=== PATIENT | male | born 1940 | race Caucasian/White ===

== ENCOUNTER 2019-07-11 21:49 | Inpatient (IN) | payer MEDICARE, SELFPAY ==
[2019-07-11 22:29] VITALS: BMI 23.3
[2019-07-11 22:35] VITALS: BP 156/74; PULSE 84; RESP 21; TEMP 37.1; O2SAT 99
--- NOTE | 2019-07-11 23:10 | ED.LOWEXIN ---
HPI - Extremity Injury (Lower) General Chief Complaint: Extremity Injury, Lower Stated Complaint: states needs rt knee drained Time Seen by Provider: 07/11/19 23:10 Source: patient Mode of arrival: Ambulatory Limitations: no limitations History of Present Illness HPI Narrative: The patient developed right leg pain and swelling about 1 week ago. He was seen by his PCM, and referred for an ultrasound to rule out DVT. The patient notes edema was seen in the leg, but no evidence of DVT. Pain and swelling persisted throughout the week. The pain is swelling starts at the right foot/ankle code in a goes to the right thigh. He is specially tender and the right knee. He was then seen at an ER 2 nights ago. He describes his right knee been aspirated. The 1st syringe was yellow, there was eventually blood noted in the syringe. Purulence was not noted. He was discharged home. He has had ongoing pain and now redness in the leg. He denies associated fever, chills, chest pain or dyspnea. The only medication he takes is aspirin. He is status post mitral valve replacement and CABG. He has no history of diabetes. He has no history of surgery or injury to the right leg. He was contacted at home today, and infection was discovered in the aspirate of the right knee. The patient is aware of a lack of immediate orthopedic coverage at the hospital, although ortho is on staff. The patient presented here for evaluation. I spoke to the ER doctor, the patient's records were reviewed. The culture grew Staph aureus, (not MRSA). The pain and swelling of the right leg is perhaps increased a little through the course the leak. The redness is now extending up to the right groin. After the EKG was obtained, I question the patient about AFib. Apparently he did have a brief period of AFib after head his cardiac surgery. He has not had sustained AFib. Related Data Allergies Allergy/AdvReac Type Severity Reaction Status Date / Time aspirin AdvReac Verified 07/11/19 22:28 Sulfa (Sulfonamide AdvReac Verified 07/11/19 22:28 Antibiotics) Review of Systems Review of Systems ROS Unobtainable: All systems reviewed & are unremarkable except as noted in HPI and below Constitutional Constitutional: Reports as per HPI, Denies chills, Denies fever(s), Denies headache(s), Denies lethargy and Denies weakness ENT Ears, Nose, Mouth, and Throat: Denies vertigo, Denies dizziness and Denies headache(s) Cardiovascular Cardiovascular: Denies chest pain, Denies irregular heart rhythm, Denies lightheadedness, Denies palpitations, Denies dyspnea, Denies dyspnea on exertion and Denies orthopnea Respiratory Respiratory: Denies cough, Denies dyspnea, Denies dyspnea on exertion and Denies wheezing Gastrointestinal Gastrointestinal: Denies abdominal pain, Denies change in bowel habits, Denies diarrhea, Denies nausea and Denies vomiting Musculoskeletal Musculoskeletal: Denies back pain Comments: Right leg pain and swelling. Significant right knee pain, he cannot straighten his knee. Integumentary/Breasts Comments: Erythema to the right leg. Neurologic Neurologic: Denies vertigo, Denies dizziness, Denies headache(s) and Denies weakness Endocrine Endocrine: Denies palpitations Hematologic/Lymphatic Hematologic/Lymphatic: Denies easy bruising and Denies lymphadenopathy Comments: He is not anticoagulated. Allergic/Immunologic Allergic/Immunologic: Denies wheezing Patient History Medical History (Updated 07/12/19 @ 01:14 by Paul Minor MD) CAD (coronary artery disease), [place] coronary artery (Acute) Paroxysmal atrial fibrillation (Acute) Valvular heart disease (Acute) Surgical History History of mitral valve repair (Acute) Hx of CABG (Acute) Social History Smoking Status: Former smoker Smoking Status: Former smoker Alcohol type: beer Substance Use Type: does not use Exam Initial Vital Signs Initial Vital Signs: Vital Signs Temperature 98.8 F 07/11/19 22:35 Pulse Rate 84 07/11/19 22:35 Respiratory Rate 21 07/11/19 22:35 Blood Pressure 156/74 H 07/11/19 22:35 Pulse Oximetry 99 07/11/19 22:35 Const General: cooperative and well developed Nutritional Appearance: well nourished HENMT Mouth: oral mucosae normal and oropharynx normal Eyes Conjunctivae: conjunctivae normal Neck Neck: No lymphadenopathy Resp Effort & Inspection: normal respiratory effort and able to speak in complete sentences Auscultation: clear to auscultation bilaterally, no rales, no rhonchi and no wheezes Cardio Rhythm: abnormal rhythm irregularly irregular Heart Sounds: no click, no gallops, no murmurs and no rubs Pulses: normal peripheral pulses GI Inspection: non-distended Palpation: soft and no hepatosplenomegaly Auscultation: normal bowel sounds Back/Spine/Pelvis Back: No erythema Skin Other: Erythema from the right going to the right foot. Neuro General: alert, oriented x3, gait normal and no focal motor deficits Speech: speech normal Motor: muscle tone normal throughout Extrem General: full ROM, no clubbing, cyanosis or edema, no pedal edema and no calf tenderness Other: The patient has erythema and edema from the right groin, to the dorsal right foot. He is particularly tender on the right knee. The right knee is swollen, erythematous. He cannot flex or extend the right knee due to severe pain. The right leg is neurovascularly intact. Course Course Course Narrative: The patient has a septic right knee. Cultures reviewed from the outside hospital. He has Staph aureus, not MRSA. Ortho, Dr. Frias was consulted. He came in to see the patient, the patient will go to the OR for a right knee washout tonight. Antibiotics were discussed, oxacillin is apparently not available. Antibiotics will be left to ortho an the anesthesiologist. Orders Ordered: ED Orders 07/11/19 23:33 XR knee RT 1to2V Stat 07/11/19 23:40 EKG-12 Lead Stat 07/11/19 23:45 Blood Culture Stat C-Reactive Protein Quant Stat Complete Blood Count AUTO DIFF Stat Comprehensive Metabolic Panel Stat Erythrocyte Sedimentation Rate Stat Prothrombin Time INR Stat Acetaminophen (Tylenol) 325 mg PO PACUNOW PRN PRN Reason: Pain, Mild (1-3) Fentanyl (Sublimaze) 0 mcg IV Q5M PRN PRN Reason: Pain, Moderate (4-6) Hydromorphone HCl (Dilaudid) 0 mg IV Q5MIN PRN PRN Reason: Pain, Mild (1-3) Lactated Ringer's (Lactated Ringers) 1,000 mls @ 42 mls/hr IV CONT SABRINA Ondansetron HCl (Zofran) 4 mg IV NOW PRN PRN Reason: Nausea And Vomiting Oxycodone/Acetaminophen (Percocet 5/325) 1 tab PO PACUNOW PRN PRN Reason: Mild or Moderate Pain Vital Signs Vital signs: Vital Signs - 8 hr 07/11/19 22:35 07/11/19 23:44 Temperature 98.8 F Pulse Rate 84 84 Respiratory Rate 21 Blood Pressure [Left Arm] 156/74 H 150/71 H Pulse Oximetry 99 100 MDM - Extremity Injury (Lower) Lab Data Result diagrams: 07/11/19 23:45 07/11/19 23:45 Labs: Lab Results 07/11/19 07/11/19 07/11/19 Range/Units 23:45 23:45 23:45 WBC 6.8 (4.5-11.0) X10^3/uL RBC 3.97 L (4.5-5.9) X10^6/uL Hgb 12.6 L (13.5-17.5) g/dL Hct 36.8 L (41-53) % MCV 92.6 (80-100) fL MCH 31.8 (26-34) PG MCHC 34.4 (30-36) % RDW 13.5 (11.6-14.8) % Plt Count 231 (150-400) X10^3/uL Neut % (Auto) 71.0 (50-75) % Lymph % (Auto) 16.9 L (25-40) % [place] % (Auto) 11.1 (3-14) % Eos % (Auto) 0.4 L (2-4) % Baso % (Auto) 0.6 (0-2) % Neut # (Auto) 4800 (8384-4202) /uL Lymph # (Auto) 1100 (3865-1815) /uL [place] # (Auto) 800 (0-900) /uL Eos # (Auto) 0 (0-450) /uL Baso # (Auto) 0 (0-100) /uL ESR 83 H (0-15) MM/HR PT 15.0 H (10.1-12.7) SECONDS INR 1.3 (0.9-1.3) Sodium 138 (137-145) mmol/L Potassium 4.7 (3.4-5.1) mmol/L Chloride 103 (98-107) mmol/L Carbon Dioxide 25 (22-32) mmol/L BUN 28 H (9-20) mg/dL Creatinine 1.00 (0.66-1.25) mg/dL Estimated GFR > 60.0 (>60) mL/min BUN/Creatinine Ratio 28.0 H (6-22) Glucose 144 H (80-110) mg/dL Calcium 9.4 (8.4-10.2) mg/dL Total Bilirubin 0.9 (0.2-1.3) mg/dL AST 25 (17-59) IU/L ALT 19 (<50) IU/L Alkaline Phosphatase 64 (38-126) U/L C-Reactive Protein 33.8 H (<1.0) mg/dL Total Protein 7.5 (6.3-8.2) g/dL Albumin 4.0 (3.5-5.0) g/dL Globulin 3.5 (1.7-4.1) g/dL Albumin/Globulin Ratio 1.1 (1.0-2.8) Imaging Data Right knee x-ray:: My Impression: No acute bony deformity. ECG Data Attestation: I personally reviewed and interpreted this ECG as follows: (AFib rate 90 beats per minute. LVH. Nonspecific ST T wave changes.) Discharge Plan Departure Patient Disposition: Admitted as Observation Clinical Impression: Septic joint of right knee joint, Atrial fibrillation Admit Date/Time: 07/12/19 01:03 Admit Provider: Steven Frias
--- NOTE | 2019-07-11 23:33 | DI.RAD.S_ITS ---
PROCEDURE: XR KNEE RT 1TO2V INDICATIONS: Septic right knee TECHNIQUE: 2 views of the knee were acquired. COMPARISON: None. FINDINGS: Bones: No fractures or dislocations. No suspicious bony lesions. Soft tissues: There is soft tissue radiodensity that is increased in area of the suprapatellar bursa, and this likely represents a significant joint effusion in his clinical circumstances. It is possible that soft tissue edema superimposed on this area could mimic a joint effusion, however.. No suspicious soft tissue calcifications. IMPRESSION: No osteomyelitis or foreign body seen. Soft tissue increased radiodensity over the expected area of the suprapatellar bursal space is present but it is unclear from the images whether this represents a large joint effusion or soft tissue edema superimposed on the area of the bursal space. A limited ultrasound could differentiate between those possibilities. Dictated by: Kayode Baker M.D. on 07/12/2019 at 8:25 Approved by: Kayode Baker M.D. on 07/12/2019 at 8:27
[2019-07-11 23:44] VITALS: BP 150/71; PULSE 84; O2SAT 100
[2019-07-11 23:58] LABS: Add Manual Diff / Slide Review NO; Basophils Absolute Auto 0 /uL (0-100); Basophils Percent Auto 0.6 % (0-2); Eosinophils Absolute Auto 0 /uL (0-450); Eosinophils Percent Auto 0.4 % (2-4); Hematocrit 36.8 % (41-53); Hemoglobin 12.6 g/dL (13.5-17.5); Lymphocytes Absolute Auto 1100 /uL (1100-4500); Lymphocytes Percent Auto 16.9 % (25-40); Mean Corpuscular HGB Conc 34.4 % (30-36); Mean Corpuscular Hemoglobin 31.8 PG (26-34); Mean Corpuscular Volume 92.6 fL (80-100); Monocytes Absolute Auto 800 /uL (0-900); Monocytes Percent Auto 11.1 % (3-14); Neutrophils Absolute Auto 4800 /uL (1500-7000); Platelet Count 231 X10^3/uL (150-400); Red Blood Cell Count 3.97 X10^6/uL (4.5-5.9); Red Cell Distribution Width 13.5 % (11.6-14.8); White Blood Cell Count 6.8 X10^3/uL (4.5-11.0)
[2019-07-12] VITALS (14 sets, daily range): BP systolic 106–142; BP diastolic 58–92; PULSE 68–89; RESP 12–20; TEMP 36.2–37.7; O2SAT 95–100; BMI 23.3
[2019-07-12 00:02] LABS: INR 1.3 (0.9-1.3)
[2019-07-12 00:09] LABS: Alanine Aminotransferase 19 IU/L (<50); Albumin Globulin Ratio 1.1 (1.0-2.8); Alkaline Phosphatase 64 U/L (38-126); Aspartate Aminotransferase 25 IU/L (17-59); Bilirubin Total 0.9 mg/dL (0.2-1.3); Blood Urea Nitrogen 28 mg/dL (9-20); Calcium 9.4 mg/dL (8.4-10.2); Carbon Dioxide 25 mmol/L (22-32); Chloride 103 mmol/L (98-107); Estimated Glomerular Filt Rate > 60.0 mL/min (>60); Globulin 3.5 g/dL (1.7-4.1); Glucose 144 mg/dL (80-110); HEMOLYSIS < 15 (0-50); Potassium 4.7 mmol/L (3.4-5.1); Sodium 138 mmol/L (137-145); Total Protein 7.5 g/dL (6.3-8.2)
[2019-07-12 00:22] LABS: Erythrocyte Sedimentation Rate 83 MM/HR (0-15)
--- NOTE | 2019-07-12 00:22 | PM.HP.1 ---
History of Present Illness History of Present Illness Date Patient Seen: 07/12/19 Time Patient Seen: 00:22 Chief complaint: states needs rt knee drained Narrative: 78-year-old male with a septic right knee. He reports twisting his knee over a week ago and having increasing pain over the week. His leg has been swollen and they sent him for an ultrasound to make sure there was no DVT. He got the results back several days later that there was no blood clot but there was fluid on the knee. He tried resting and icing but the pain began escalating in and on 07/09/2019 he was seen at the [facility] Emergency Room where they aspirated his knee. He reports they remove 4 vials of fluid and the swelling greatly went down, but it has returned today. His joint fluid cultures came back growing Staph aureus and the emergency room called him up today and recommended he come to our emergency room as they did not have any orthopedic coverage at their hospital. At this point, he is having severe pain with any attempt at range of motion or weight-bearing. He denies fever or chills. Positive swelling through the entire leg. Redness in the leg as well. His knee feels like it is under high tension and needs to burst. Patient History Medical History CAD (coronary artery disease), [place] coronary artery (Acute) Valvular heart disease (Acute) Surgical History History of mitral valve repair (Acute) Hx of CABG (Acute) Family & Social History Safety & Behavioral: Feels Safe in Current Yes Environment Been Physically Hurt or No Threatened By a Person Tobacco & Substance use: Smoking Status Former smoker Substance Use Type does not use Meds Home Medications and Allergies Allergies Allergy/AdvReac Type Severity Reaction Status Date / Time aspirin AdvReac Verified 07/11/19 22:28 Sulfa (Sulfonamide AdvReac Verified 07/11/19 22:28 Antibiotics) Review of Systems Constitutional Constitutional: Denies fever(s) ENT Ears, Nose, Mouth, and Throat: No dizziness Comments: Chronic hearing loss Cardiovascular Cardiovascular: Denies chest pain Respiratory Respiratory: Denies cough Gastrointestinal Gastrointestinal: Denies abdominal pain Genitourinary Genitourinary: Denies dysuria Neurologic Neurologic: Denies dizziness Endocrine Endocrine: Denies change in body appearance Hematologic/Lymphatic Hematologic/Lymphatic: Denies easy bleeding Allergic/Immunologic Allergic/Immunologic: Denies urticaria Exam Vital Signs (past 8 hours): - 07/11/19 22:35 07/11/19 23:44 Temperature 98.8 F Pulse Rate 84 84 Respiratory Rate 21 Blood Pressure [Left Arm] 156/74 H 150/71 H Pulse Oximetry 99 100 Oxygen Delivery Method Room Air Const Orientation: alert and oriented x3 Resp Auscultation: clear to auscultation bilaterally Cardio Rate: regular rate Rhythm: regular rhythm Extrem Other: Right leg grossly swollen through the entire leg from groin to foot. Erythema into the groin. Pain with more than 10? range of motion of the knee. Tender to palpation along the medial and lateral joint line. 1+ dorsalis pedis pulse. Objective Labs Result Diagrams: 07/11/19 23:45 07/11/19 23:45 Labs: Laboratory Results - last 24 hr 07/11/19 07/11/19 07/11/19 23:45 23:45 23:45 WBC 6.8 RBC 3.97 L Hgb 12.6 L Hct 36.8 L MCV 92.6 MCH 31.8 MCHC 34.4 RDW 13.5 Plt Count 231 Neut % (Auto) 71.0 Lymph % (Auto) 16.9 L [place] % (Auto) 11.1 Eos % (Auto) 0.4 L Baso % (Auto) 0.6 Neut # (Auto) 4800 Lymph # (Auto) 1100 [place] # (Auto) 800 Eos # (Auto) 0 Baso # (Auto) 0 PT 15.0 H INR 1.3 Sodium 138 Potassium 4.7 Chloride 103 Carbon Dioxide 25 BUN 28 H Creatinine 1.00 Estimated GFR > 60.0 BUN/Creatinine Ratio 28.0 H Glucose 144 H Calcium 9.4 Total Bilirubin 0.9 AST 25 ALT 19 Alkaline Phosphatase 64 Total Protein 7.5 Albumin 4.0 Globulin 3.5 Albumin/Globulin Ratio 1.1 Assessment & Plan Assessment & Plan narrative: I reviewed his knee aspirate from 07/09/[facility]. He had a cell count of 74,000 as well as 95% neutrophils. His culture results today show Staph aureus only resistant to penicillin, but sensitive to oxacillin and the remainder. He has a septic right knee. My recommendation is for surgical intervention with irrigation and debridement. This is considered a surgical emergency due to the ongoing damage to his knee joint the longer this goes on. Risks and benefits of surgery were discussed including but not limited to medical risks with heart attack, stroke, DVT, PE, , ongoing infection, injury to nerves with pain or numbness, laxity of knee, stiffness of knee, need for further surgery. Appropriate consents were obtained. We will take him to the operating room tonight for emergent washout. Plan for several days of IV antibiotics before discharging home on orals.
--- NOTE | 2019-07-12 00:31 | PM.PREOP ---
Pre-operative Note Interval Note History & Physical reviewed/Exam performed by Physician: Yes Changes to H&P: No
--- NOTE | 2019-07-12 00:32 | PM.OP.1 ---
Operative Date/Time/Diagnoses Date of procedure: 07/12/19 Time of procedure: 01:50 Pre-op diagnosis: Septic right knee with Staph aureus infection Post-op diagnosis: same Procedure & Clinicians Procedure: Irrigation debridement of right septic knee Same procedure as scheduled: Yes Indications: 78-year-old male with a septic right knee. Was felt that he would need emergent washout. Risks and benefits were discussed and appropriate consent obtained. Surgeon: Steven Frias Click Yes if Unassisted: Yes Anesthesia Type: General Operative Notes Findings: None Closure Type: primary Specimen(s): other (Joint fluid culture) Estimated Blood Loss (mL): 10 Procedure in detail: Patient brought to the operating room and intubated on the table. The well-marked right leg was prepped and draped in the standard sterile fashion. Antibiotics were given. Time-out was performed. A 3 cm medial arthrotomy was performed over the right knee joint. Upon opening the joint capsule there is a large márquez of thick purulent yellow fluid. This was cultured and sent to microbiology. We then pulled approximately 60 more mm of thick fluid out of his knee. His knee was then irrigated with 3 L of pulsatile lavage. Limited examination of the knee joint through the arthrotomy showed some degenerative cartilage changes on the undersurface of the patella and the femoral surface. A drain was placed in the knee. The joint capsule, superficial, and skin were closed. Sterile dressing was placed. Was then brought to the recovery room with no complications. Complications: none Post-operative Condition: stable Disposition: PACU Plan for aftercare: Inpatient for IV antibiotics.
[2019-07-12] MEDS: LACTATED RINGERS 1,000 ML 42 ML IV (01:00)
[2019-07-12 01:03] LABS: C-Reactive Protein Quant 33.8 mg/dL (<1.0)
[2019-07-12] MEDS: CEFAZOLIN 2 GM/100 ML FROZ.PIGGY IV ×2 (01:05→09:48)
--- NOTE | 2019-07-12 01:33 | SUR.OPER ---
Supine on padded OR bed, head on pillow, arms secured on padded arm boards at <90 degrees abduction, legs uncrossed, safety belt at thigh, tape over blanket over lower legs.
[2019-07-12] MEDS: BUPIVACAINE 0.25% W/ EPI 30 ML VIAL INJ (01:40)
[2019-07-12] MEDS: SODIUM CHLORIDE IRRIG SOLUTION 3,000 ML, GENTAMICIN 240 MG IRR (02:04)
--- NOTE | 2019-07-12 02:23 | SUR.PHASEI ---
PT TRANSFERRED TO ACUTE CARE FLOOR IN STABLE CONDITION, VSS. PT ALERT AND TALKING TO RN DURING TRANSPORT. BEDSIDE REPORT GIVEN TO DO CAMACHO AT TIME OF ARRIVAL TO ROOM. TRANSFERRED CARE OF PT TO DO CAMACHO AT THAT TIME.
[2019-07-12] MEDS: LACTATED RINGERS 1,000 ML 125 ML IV ×2 (03:00→09:49)
--- NOTE | 2019-07-12 04:03 | PC.ADMIT ---
Safe hand off from PACU. Patient arrived on unit at 0215. VSS. Patient denies pain or nausea. Lung sounds clear bilaterally. Patient has R lower extremity Edema 2+, CMS intact. Incision w/ 4x4 and coban, clean dry and intact. Patient was educated about the use of IS, SCD's were placed, call light is within reach and bed is low and locked. [address] Admission Note: The patient,Gilmer Clark,78 y/o, was given written information regarding hospital policies, unit procedures and contact persons. Patient's smoking status: Former smoker. Vital Signs - 8 hr 07/11/19 22:35 07/11/19 23:44 07/12/19 01:50 Temperature 98.8 F 97.1 F L Pulse Rate 84 84 70 Respiratory Rate 21 20 Blood Pressure 106/65 Blood Pressure [Left Arm] 156/74 H 150/71 H Pulse Oximetry 99 100 95 07/12/19 01:55 07/12/19 02:00 07/12/19 02:05 Temperature Pulse Rate 72 68 69 Respiratory Rate 19 15 13 Blood Pressure 127/92 H 131/72 116/58 L Blood Pressure [Left Arm] Pulse Oximetry 97 99 96 07/12/19 02:10 07/12/19 02:15 07/12/19 02:45 Temperature 98.2 F 97.5 F L Pulse Rate 78 68 70 Respiratory Rate 19 12 16 Blood Pressure 118/77 127/74 142/70 H Blood Pressure [Left Arm] Pulse Oximetry 96 98 100 07/12/19 03:15 Temperature 98.2 F Pulse Rate 76 Respiratory Rate 14 Blood Pressure 130/71 Blood Pressure [Left Arm] Pulse Oximetry 96
[2019-07-12] MEDS: HYDROCODONE/ACET 5/325 TABLET 1 TAB PO ×3 (05:24→23:49)
--- NOTE | 2019-07-12 06:57 | PC.NURSE ---
Patient O2 saturation going to 88-90% when sleeping. 1.5 liters O2 placed on patient. Patient is saturation 96%
--- NOTE | 2019-07-12 07:20 | P.PN_ITS ---
Subjective Subjective Date Patient Seen: 07/12/19 Time Patient Seen: 07:20 Interval history: He is doing well, less pressure feeling in the knee, much more comfortable. Exam Vital Signs (past 8 hours): - 07/11/19 23:44 07/12/19 01:50 07/12/19 01:55 Temperature 97.1 F L Pulse Rate 84 70 72 Respiratory Rate 20 19 Blood Pressure 106/65 127/92 H Blood Pressure [Left Arm] 150/71 H Pulse Oximetry 100 95 97 07/12/19 02:00 07/12/19 02:05 07/12/19 02:10 Temperature Pulse Rate 68 69 78 Respiratory Rate 15 13 19 Blood Pressure 131/72 116/58 L 118/77 Blood Pressure [Left Arm] Pulse Oximetry 99 96 96 07/12/19 02:15 07/12/19 02:45 07/12/19 03:15 Temperature 98.2 F 97.5 F L 98.2 F Pulse Rate 68 70 76 Respiratory Rate 12 16 14 Blood Pressure 127/74 142/70 H 130/71 Blood Pressure [Left Arm] Pulse Oximetry 98 100 96 07/12/19 05:15 Temperature 97.5 F L Pulse Rate 72 Respiratory Rate 12 Blood Pressure 136/70 Blood Pressure [Left Arm] Pulse Oximetry 95 Oxygen Delivery Method Room Air Oxygen Flow Rate 0 Const Orientation: alert and oriented x3 Extrem Other: Right knee dressing intact. Drain 50 mL. Easily wiggles toes and ankle. Unchanged 3+ edema in the foot Objective Labs Result Diagrams: 07/11/19 23:45 07/11/19 23:45 Labs: Laboratory Results - last 24 hr 07/11/19 07/11/19 07/11/19 23:45 23:45 23:45 WBC 6.8 RBC 3.97 L Hgb 12.6 L Hct 36.8 L MCV 92.6 MCH 31.8 MCHC 34.4 RDW 13.5 Plt Count 231 Neut % (Auto) 71.0 Lymph % (Auto) 16.9 L [place] % (Auto) 11.1 Eos % (Auto) 0.4 L Baso % (Auto) 0.6 Neut # (Auto) 4800 Lymph # (Auto) 1100 [place] # (Auto) 800 Eos # (Auto) 0 Baso # (Auto) 0 ESR 83 H PT 15.0 H INR 1.3 Sodium 138 Potassium 4.7 Chloride 103 Carbon Dioxide 25 BUN 28 H Creatinine 1.00 Estimated GFR > 60.0 BUN/Creatinine Ratio 28.0 H Glucose 144 H Calcium 9.4 Total Bilirubin 0.9 AST 25 ALT 19 Alkaline Phosphatase 64 C-Reactive Protein 33.8 H Total Protein 7.5 Albumin 4.0 Globulin 3.5 Albumin/Globulin Ratio 1.1 Assessment & Plan Post-op Postoperative Procedures: Procedures Operation Date: 07/12/19 01:25 Actual Procedures Side Surgeon p Incision and Drainage RIGHT INFECTED KNEE Right Steven Frias MD He is doing very well after his irrigation debridement early this morning. Continue IV antibiotics. Anticipate 2-3 days of IVs in the hospital.
--- NOTE | 2019-07-12 10:26 | PC.NURSE ---
Patient alert and oriented, denies need for pain meds at this time, no nausea. Dressing to right knee intact one small spot dried sang drainage noted. CMS+ RLE, 2+ pitting edema. Patient able to stand at bedside and void 175cc hank colored urine.
--- NOTE | 2019-07-12 11:04 | PT.IIE ---
Surgery Performed Operation Date: 07/12/19 01:25 Actual Procedures p Incision and Drainage RIGHT INFECTED KNEE(Right) - Steven Frias MD Surgical History (Last Reviewed 07/12/19 @ 00:24 by Steven Frias MD) History of mitral valve repair (Acute) Hx of CABG (Acute) Medical History (Last Updated 07/12/19 @ 01:07 by Paul Minor MD) CAD (coronary artery disease), eek coronary artery (Acute) Paroxysmal atrial fibrillation (Acute) Valvular heart disease (Acute) Physical Therapy Inpatient Evaluation/Re-Eval M1 PT/OT-IP Prior Functional Status Start: 07/12/19 12:50 Freq: NEEDED Status: Active Protocol: Document 07/12/19 11:04 AB (Rec: 07/12/19 13:28 AB [id number]) Medical Review Prior Functional Status Medical History Reviewed Yes Communication able to make needs known Mobility and Gait pt stated that he is modified independent with all mobilities and ambulation without AD but occasionally uses a SPC Social History Household Members spouse Living Arrangements House Number of Floors (Floors) One Floor Number of Stairs To Enter/Railing? 1 step to enter Home Environment Standard Height Toilet,Tub/ Shower Home Equipment Shower Seat without Backrest, Hand Held Shower,Grab Bars In Shower Additional Social History Comment stated that spouse will not be able to assist pt M2 PT-IP Current Condition Start: 07/12/19 12:50 Freq: NEEDED Status: Active Protocol: Document 07/12/19 11:04 AB (Rec: 07/12/19 13:28 AB [id number]) Physical Therapy Current Condition Current Condition Evaluation Date 07/12/19 Treatment Diagnosis septic R knee s/p I&D; difficulty in walking Onset Date 07/12/19 M3 PT-IP Subjective Start: 07/12/19 12:50 Freq: NEEDED Status: Active Protocol: Document 07/12/19 11:04 AB (Rec: 07/12/19 13:28 AB [id number]) Subjective Physical Therapy Visit Type Type Initial Evaluation Visit Start Time 11:04 Visit Stop Time 11:30 Total Visit Minutes 26 Number of DATABASE ADMINISTRATOR Visits 0 Physical Therapy Visit Comments Patient Comments pt agreeable to do PT Therapy Pain Assessment Pain When Pain Assessed At Rest Pain Present Pain Present Pain Reported Location Right Knee Intensity 3 Scale Used increases to 8/10 with mobility Pain Management Techniques Timing of Activity with Medications M4 PT-IP Mobility and Gait Start: 07/12/19 12:50 Freq: NEEDED Status: Active Protocol: Document 07/12/19 11:04 AB (Rec: 07/12/19 13:28 AB [id number]) PT-Bed Mobility Assessment Supine to Sit Supine to Sit Standby Assistance PT-Transfer Assessment Sit to and From Stand Sit to and from Stand Minimal Assistance,1 Person Assistance,Use of Upper Extremities Equipment Transfer Assistive Device Gait Belt,Front Wheeled Walker Orthotic/Prosthetic Devices or Brace: No Transfers Transfer Destination Chair Transfer Technique ambulated using FWW Transfer Ability Level of Assist Minimal Assistance,1 Person Assistance,Use of Upper Extremities Comments Mobility Comments pt completed supine to sit SBA , was able to sit on EOB SBA. completed sit to stand min A and cues and pt ambulated in room ~ 20 ft using FWW min A and cues. agreed to sit up on chair. positioned on chair . call light and table placed within each. Gait Assessment Gait Gait Assistance Required: Minimum Assistance,1 Person Assist Distance (Feet) 20 Able to Maintain Weight Bearing Status Yes During Gait Assistive Devices Assistive Device Gait Belt,Front Wheeled Walker Orthotic/Prosthetic Devices or Brace: No Gait Deviations General Gait Pattern Antalgic,Decreased Stride Length,Decreased Feet Clearance Factors Limiting Gait Function Factors Limiting Gait Function Decreased Activity Tolerance, Decreased Strength,Limited Range of Motion,Pain,Poor Balance Comments Gait Comments pt tends to not weight bear on RLE and instructed to weight bear as tolerated. PT-Balance Assessment Sitting Balance and Reactions Static Sitting Balance Ability Good Dynamic Sitting Balance Ability Good Standing Balance and Reactions Static Standing Balance Ability Fair Dynamic Standing Balance Ability Fair Device Used FWW M5 PT-IP Objective Assessments Start: 07/12/19 12:50 Freq: NEEDED Status: Active Protocol: Document 07/12/19 11:04 AB (Rec: 07/12/19 13:28 AB [id number]) Orientation Orientation/Cognition Level of Alertness Alert Orientation Name,Place,Situation Gross Range of Motion Lower Extremity ROM Assessment Right Impaired Impairments pain inhibiting motion: PROM: 30 deg flexion; lacking ~ 30 deg in extension Strength Lower Extremity Strength Assessment Right Impaired Hip 3+/5 Knee 3+/5 Coordination Assessment Gross Coordination Gross Coordination WNL Sensation Assessment Sensation Gross Sensation WNL Muscle Tone Muscle Tone WNL Yes M6 PT-IP Treatment Start: 07/12/19 12:50 Freq: NEEDED Status: Active Protocol: Document 07/12/19 11:04 AB (Rec: 07/12/19 13:28 AB [id number]) Physical Therapy Treatment Exercises Exercises Heel Slides Education Education Provided Safety M7 PT-IP Assessment and Plan Start: 07/12/19 12:50 Freq: NEEDED Status: Active Protocol: Document 07/12/19 11:04 AB (Rec: 07/12/19 13:28 AB [id number]) PT Summary Assessment and Plan Potential Rehabilitation Potential Good Status of Condition at Evaluation Evolving Summary Impairments Pain,ROM,Strength,Balance, Coordination,Sensation,Tone, Cognition,Bed Mobility, Transfers,Gait,Activity Tolerance Assessment Summary pt requiring min A with mobility. currently, pt is not really weight bearing on RLE but with cues, able to perform with min A and cues. pt stated that his spouse will not be able to assist him . d/c plan depending on progress but may require SNF rehab. will continue to assess mobility progress. Goals Bed Mobility Goal Independent Transfer Goal Independent,Front Wheeled Walker Gait Goal Independent,Front Wheel Walker Gait Distance 150 Other Goals up/down 1 step using FWW SBA Days to Meet Goals 10 Frequency of Treatment Frequency Of Treatment Twice a Day Treatment Plan Physical Therapy Treatment Plan Bed Mobility Training,Transfer Training,Gait Training, Therapeutic Exercise,Balance Retraining,Post Op Education, Discharge Planning,Hot or Cold Pack,Neuromuscular Re-ed, Coordination Retraining,Manual Therapy Other Recommendations and Next Treatment ambulation, stair training Focus when appropriate Recommendations To Nursing Amount of Assist Needed 1 Person Assist Discharge Recommendations PT Discharge Recommendations Home with 29/12 Assist,Home Health,SNF Rehab Other Discharge Recommendations depending on progress: SNF vs home wiht 24/ and HHPT Equipment Needed for Home Before FWW Discharge Transportation Needs at Discharge Private Vehicle,Wheelchair/ Cabulance
--- NOTE | 2019-07-12 13:51 | PT.IPTN ---
Surgery Performed Operation Date: 07/12/19 01:25 Actual Procedures p Incision and Drainage RIGHT INFECTED KNEE(Right) - Steven Frias MD Physical Therapy Treatment Note M2 PT-IP Current Condition Start: 07/12/19 12:50 Freq: NEEDED Status: Active Protocol: Document 07/12/19 11:04 AB (Rec: 07/12/19 13:28 AB [id number]) Physical Therapy Current Condition Current Condition Evaluation Date 07/12/19 Treatment Diagnosis septic R knee s/p I&D; difficulty in walking Onset Date 07/12/19 M3 PT-IP Subjective Start: 07/12/19 12:50 Freq: NEEDED Status: Active Protocol: Document 07/12/19 13:51 CLB (Rec: 07/12/19 17:05 CLB [id number]) Subjective Physical Therapy Visit Type Type Treatment Note Visit Start Time 13:51 Visit Stop Time 13:22 Total Visit Minutes 33 Number of DIRECTOR OF ADULT EPILEPSY Visits 1 Physical Therapy Visit Comments Patient Comments pt agreeable to do PT Therapy Pain Assessment Pain When Pain Assessed During Mobility Pain Present Pain Present Pain Reported Location Right Knee Intensity 5 Scale Used Numeric (1 - 10) Pain Management Techniques Timing of Activity with Medications M4 PT-IP Mobility and Gait Start: 07/12/19 12:50 Freq: NEEDED Status: Active Protocol: Document 07/12/19 13:51 CLB (Rec: 07/12/19 17:05 CLB [id number]) PT-Bed Mobility Assessment Supine to Sit Supine to Sit Minimal Assistance Scooting Scooting to Edge of Bed Standby Assistance PT-Transfer Assessment Sit to and From Stand Sit to and from Stand Contact Guard Assistance,1 Person Assistance,Use of Upper Extremities Equipment Transfer Assistive Device Gait Belt,Front Wheeled Walker Orthotic/Prosthetic Devices or Brace: No Transfers Transfer Destination Bed Transfer Technique ambulated using FWW Transfer Ability Level of Assist Contact Guard Assistance,1 Person Assistance,Use of Upper Extremities Comments Mobility Comments Pt in bed upon arrival, pt required Min A of RLE, Pt able to perform sit-stand CGA. Pt ambulated Min A ~50ft w/FWW. Pt returned to bed requiring Min A of RLE into bed. Replaced SCD's on bilateral LE 's, bed alarm on, call light and all needs within reach. 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 Gait Assessment Gait Gait Assistance Required: Minimum Assistance,1 Person Assist Distance (Feet) 50 Able to Maintain Weight Bearing Status Yes During Gait Assistive Devices Assistive Device Gait Belt,Front Wheeled Walker Orthotic/Prosthetic Devices or Brace: No Gait Deviations General Gait Pattern Antalgic,Decreased Stride Length,Decreased Feet Clearance Factors Limiting Gait Function Factors Limiting Gait Function Decreased Activity Tolerance, Decreased Strength,Limited Range of Motion,Pain,Poor Balance Comments Gait Comments Pt improved with weight bearing on RLE. Pt required three standing rest breaks during ambulation. M5 PT-IP Objective Assessments Start: 07/12/19 12:50 Freq: NEEDED Status: Active Protocol: Document 07/12/19 11:04 AB (Rec: 07/12/19 13:28 AB [id number]) Orientation Orientation/Cognition Level of Alertness Alert Orientation Name,Place,Situation Gross Range of Motion Lower Extremity ROM Assessment Right Impaired Impairments pain inhibiting motion: PROM: 30 deg flexion; lacking ~ 30 deg in extension Strength Lower Extremity Strength Assessment Right Impaired Hip 3+/5 Knee 3+/5 Coordination Assessment Gross Coordination Gross Coordination WNL Sensation Assessment Sensation Gross Sensation WNL Muscle Tone Muscle Tone WNL Yes M6 PT-IP Treatment Start: 07/12/19 12:50 Freq: NEEDED Status: Active Protocol: Document 07/12/19 13:51 CLB (Rec: 07/12/19 17:05 CLB [id number]) Physical Therapy Treatment Exercises Exercises Heel Slides Education Education Provided Safety M7 PT-IP Assessment and Plan Start: 07/12/19 12:50 Freq: NEEDED Status: Active Protocol: Document 07/12/19 13:51 CLB (Rec: 07/12/19 17:05 CLB [id number]) PT Summary Assessment and Plan Potential Rehabilitation Potential Good Status of Condition at Evaluation Evolving Summary Impairments Pain,ROM,Strength,Balance, Coordination,Sensation,Tone, Cognition,Bed Mobility, Transfers,Gait,Activity Tolerance Assessment Summary Pt requires Min A with RLE OOB and CGA for sit-stand. Pt increased ambulation to ~50ft requiring Min A and increased ability to WB on RLE. Goals Bed Mobility Goal Independent Transfer Goal Independent,Front Wheeled Walker Gait Goal Independent,Front Wheel Walker Gait Distance 150 Other Goals up/down 1 step using FWW SBA Days to Meet Goals 10 Frequency of Treatment Frequency Of Treatment Twice a Day Treatment Plan Physical Therapy Treatment Plan Bed Mobility Training,Transfer Training,Gait Training, Therapeutic Exercise,Balance Retraining,Post Op Education, Discharge Planning,Hot or Cold Pack,Neuromuscular Re-ed, Coordination Retraining,Manual Therapy Other Recommendations and Next Treatment ambulation, stair training Focus when appropriate Recommendations To Nursing Amount of Assist Needed 1 Person Assist Discharge Recommendations PT Discharge Recommendations Home with 29/12 Assist,Home Health,SNF Rehab Other Discharge Recommendations depending on progress: SNF vs home wiht 29/12 and HHPT Equipment Needed for Home Before FWW Discharge Transportation Needs at Discharge Private Vehicle,Wheelchair/ Cabulance
--- NOTE | 2019-07-12 23:55 | PC.NURSE ---
pt has been sleeping on off this shift without c/o. up in chair and amb burch with P.T. drsg to righ knee intact with HV draining ss fluid large amt swelling from knee to foot. pain controlled with vicodin most this shift. bed alarmed call light within reach.
[2019-07-13 03:40] VITALS: BP 146/89; PULSE 97; RESP 18; TEMP 36.8; O2SAT 97
[2019-07-13 05:38] LABS: Hematocrit 34.4 % (41-53); Hemoglobin 11.5 g/dL (13.5-17.5); Mean Corpuscular HGB Conc 33.6 % (30-36); Mean Corpuscular Volume 92.3 fL (80-100); Platelet Count 240 X10^3/uL (150-400); Red Blood Cell Count 3.72 X10^6/uL (4.5-5.9); Red Cell Distribution Width 13.6 % (11.6-14.8); White Blood Cell Count 5.5 X10^3/uL (4.5-11.0)
--- NOTE | 2019-07-13 07:49 | PM.PNPO.1 ---
Subjective Subjective Date Patient Seen: 07/13/19 Time Patient Seen: 07:49 Interval history: He is still having a fair amount of pain in the knee. It hurts too much to walk on it. It looks like he was only given 1 postoperative dose of antibiotics at 10:30 a.m. yesterday morning and then it was discontinued. I've discussed this with the pharmacist and they're working to see why his scheduled IV antibiotics were discontinued but they have been reordered at this point. Exam Vital Signs (past 8 hours): - 07/13/19 03:40 Temperature 98.3 F Pulse Rate 97 H Respiratory Rate 18 Blood Pressure 146/89 H Pulse Oximetry 97 Oxygen Delivery Method Room Air Oxygen Flow Rate 0 Const Orientation: alert and oriented x3 Extrem Other: 1 cm spot of drainage on dressing. Swelling improved in leg. Still painful range of motion the knee. Drain output 100/80/70. Objective Labs Result Diagrams: 07/13/19 05:00 07/11/19 23:45 Labs: Laboratory Results - last 24 hr 07/13/19 05:00 WBC 5.5 RBC 3.72 L Hgb 11.5 L Hct 34.4 L MCV 92.3 MCH 31.0 MCHC 33.6 RDW 13.6 Plt Count 240 Assessment & Plan Post-op Postoperative Procedures: Procedures Operation Date: 07/12/19 01:25 Actual Procedures Side Surgeon p Incision and Drainage RIGHT INFECTED KNEE Right Steven Frias MD I've discussed this with the pharmacist and we've restarted his IV antibiotics. They're trying to look in to why the order had been discontinued. I still anticipate him here for 1-2 more days of IV antibiotics.
[2019-07-13 08:00] VITALS: BP 145/83; PULSE 95; RESP 18; TEMP 36.7; O2SAT 100
[2019-07-13] MEDS: DOCUSATE 100 MG CAPSULE PO (08:21)
[2019-07-13] MEDS: CEFAZOLIN 2 GM/100 ML FROZ.PIGGY IV ×3 (08:21→23:28)
[2019-07-13] MEDS: HYDROCODONE/ACET 5/325 TABLET 1 TAB PO ×3 (08:21→22:04)
[2019-07-13] MEDS: SODIUM CHLORIDE 0.9% FLUSH 10 ML IV ×3 (08:27→23:28)
--- NOTE | 2019-07-13 10:11 | PT.IPTN ---
Surgery Performed Operation Date: 07/12/19 01:25 Actual Procedures p Incision and Drainage RIGHT INFECTED KNEE(Right) - Steven Frias MD Physical Therapy Treatment Note M2 PT-IP Current Condition Start: 07/12/19 12:50 Freq: NEEDED Status: Active Protocol: Document 07/12/19 11:04 AB (Rec: 07/12/19 13:28 AB [id number]) Physical Therapy Current Condition Current Condition Evaluation Date 07/12/19 Treatment Diagnosis septic R knee s/p I&D; difficulty in walking Onset Date 07/12/19 M3 PT-IP Subjective Start: 07/12/19 12:50 Freq: NEEDED Status: Active Protocol: Document 07/13/19 10:11 AB (Rec: 07/13/19 13:22 AB [id number]) Subjective Physical Therapy Visit Type Type Treatment Note Visit Start Time 10:11 Visit Stop Time 10:31 Total Visit Minutes 20 Number of PREPARED FOODS SUPERVISOR Visits 0 Physical Therapy Visit Comments Patient Comments pt agreeable to do PT Therapy Pain Assessment Pain When Pain Assessed At Rest Pain Present Pain Present Pain Reported Location Right Knee Intensity 5 Scale Used Numeric (1 - 10) Pain Management Techniques Re-positioning,Timing of Activity with Medications M4 PT-IP Mobility and Gait Start: 07/12/19 12:50 Freq: NEEDED Status: Active Protocol: Document 07/13/19 10:11 AB (Rec: 07/13/19 13:22 AB [id number]) PT-Transfer Assessment Sit to and From Stand Sit to and from Stand Minimal Assistance,1 Person Assistance,Use of Upper Extremities Equipment Transfer Assistive Device Gait Belt,Front Wheeled Walker Orthotic/Prosthetic Devices or Brace: No Gait Assessment Gait Gait Assistance Required: Minimum Assistance Distance (Feet) 40 Assistive Devices Assistive Device Gait Belt,Front Wheeled Walker Orthotic/Prosthetic Devices or Brace: No Gait Deviations General Gait Pattern Antalgic,Decreased Stride Length,Decreased Feet Clearance,Flexed Trunk,Step-to Gait Factors Limiting Gait Function Factors Limiting Gait Function Decreased Activity Tolerance, Decreased Sensation,Decreased Strength,Difficulty Following Directions,Pain,Poor Balance, Poor Safety Awareness Comments Gait Comments pt sitting on chair and agreeable to do PT. completed RLE heel slides prior to mobilization. pt completed sit to stand min A and cues. ambulated in room ~ 40 ft using FWW min A and cues. pt with difficulty weight bearing on RLE and having foot flat on the floor but improve as pt walks. pt requested to stay up on chair after ambulation. positioned on chair. call light and table placed within reach. M5 PT-IP Objective Assessments Start: 07/12/19 12:50 Freq: NEEDED Status: Active Protocol: Document 07/12/19 11:04 AB (Rec: 07/12/19 13:28 AB [id number]) Orientation Orientation/Cognition Level of Alertness Alert Orientation Name,Place,Situation Gross Range of Motion Lower Extremity ROM Assessment Right Impaired Impairments pain inhibiting motion: PROM: 30 deg flexion; lacking ~ 30 deg in extension Strength Lower Extremity Strength Assessment Right Impaired Hip 3+/5 Knee 3+/5 Coordination Assessment Gross Coordination Gross Coordination WNL Sensation Assessment Sensation Gross Sensation WNL Muscle Tone Muscle Tone WNL Yes M6 PT-IP Treatment Start: 07/12/19 12:50 Freq: NEEDED Status: Active Protocol: Document 07/12/19 13:51 CLB (Rec: 07/12/19 17:05 CLB [id number]) Physical Therapy Treatment Exercises Exercises Heel Slides Education Education Provided Safety M7 PT-IP Assessment and Plan Start: 07/12/19 12:50 Freq: NEEDED Status: Active Protocol: Document 07/13/19 10:11 AB (Rec: 07/13/19 13:22 AB [id number]) PT Summary Assessment and Plan Potential Rehabilitation Potential Good Summary Impairments Pain,ROM,Strength,Balance, Coordination,Sensation,Tone, Cognition,Bed Mobility, Transfers,Gait,Activity Tolerance Progress Towards Goals Slow Progress due to Pain Assessment Summary pt porgressing slowly with mobility and able to ambulate today using FWW ~ 40 ft with min A and cues. d/c plan depending on progress. will continue to assess mobility. Goals Bed Mobility Goal Independent Transfer Goal Independent,Front Wheeled Walker Gait Goal Independent,Front Wheel Walker Gait Distance 150 Other Goals up/down 1 step using FWW SBA Days to Meet Goals 10 Frequency of Treatment Frequency Of Treatment Twice a Day Treatment Plan Physical Therapy Treatment Plan Bed Mobility Training,Transfer Training,Gait Training, Therapeutic Exercise,Balance Retraining,Post Op Education, Discharge Planning,Hot or Cold Pack,Neuromuscular Re-ed, Coordination Retraining,Manual Therapy Other Recommendations and Next Treatment ambulation, stair training Focus when appropriate Recommendations To Nursing Amount of Assist Needed 1 Person Assist Discharge Recommendations PT Discharge Recommendations Home with 24/7 Assist,Home Health,SNF Rehab Other Discharge Recommendations depending on progress: SNF vs home with 24/7 and HHPT Equipment Needed for Home Before FWW Discharge Transportation Needs at Discharge Private Vehicle,Wheelchair/ Cabulance
[2019-07-13 13:00] VITALS: BP 142/83; PULSE 82; RESP 18; TEMP 36.8; O2SAT 98
[2019-07-13 15:30] VITALS: BP 130/68; PULSE 71; RESP 17; TEMP 36.6; O2SAT 99
--- NOTE | 2019-07-13 16:06 | CM.DANOTE ---
DCP/Assessment: Reviewed chart. Patient is a 78yr old male admitted to [facility] w/septic right knee requiring surgery which was performed on 07-12-[address] Frias. PCP is Dr. Thornton. Primary payor is 1)[facility]. Met with patient this AM explained CM/SW role. Patient very pleasant, alert and oriented at time of visit. Patient reports that he is primarily I at baseline. Patient drives and is very active in his community. Patient anticipates going home when medically stable. Spoke briefly with Dr. Frias whom anticipates a few more days of hospitalization for IV abx then patient will be discharged home. IV abx not anticipated as of now. Therapy evaluation anticipated. P: Anticipate home when stable. Continue to follow closely. SRIRAM Snow Discharge Planning/Care Management CM Discharge Assessment Start: 07/13/19 16:05 Freq: Status: Active Protocol: Document 07/13/19 16:05 KJS (Rec: 07/13/19 16:06 S [id number]) Discharge Planning Assessment Assigned Meteorology Teacher SRIRAM Snow Contact Information Maddy Clark (spouse) [phone] Advance Directives? No History Provided By Patient,Medical Record Prior Living Arrangements House Household Members spouse Type of transporation used prior to Drives own vehicle admit Independent with ADL's Yes Is patient alert and oriented? Yes Barriers to Discharge No Discharge Plan Home Whiteboard Updated in Patient Room with Yes name and ext. # of Meteorology Teacher Review Status In Process Next Review Type Continued Stay Review
--- NOTE | 2019-07-13 16:33 | PT.IPTN ---
Surgery Performed Operation Date: 07/12/19 01:25 Actual Procedures p Incision and Drainage RIGHT INFECTED KNEE(Right) - Steven Frias MD Physical Therapy Treatment Note M2 PT-IP Current Condition Start: 07/12/19 12:50 Freq: NEEDED Status: Active Protocol: Document 07/12/19 11:04 AB (Rec: 07/12/19 13:28 AB [id number]) Physical Therapy Current Condition Current Condition Evaluation Date 07/12/19 Treatment Diagnosis septic R knee s/p I&D; difficulty in walking Onset Date 07/12/19 M3 PT-IP Subjective Start: 07/12/19 12:50 Freq: NEEDED Status: Active Protocol: Document 07/13/19 14:51 LJ (Rec: 07/13/19 16:33 LJ [email or web address]) Subjective Physical Therapy Visit Type Type Treatment Note Visit Start Time 14:51 Visit Stop Time 15:15 Total Visit Minutes 24 Number of SCALPER OPERATOR Visits 1 Physical Therapy Visit Comments Patient Comments pt agreeable to do PT Therapy Pain Assessment Pain When Pain Assessed At Rest Pain Present Pain Present Pain Reported M4 PT-IP Mobility and Gait Start: 07/12/19 12:50 Freq: NEEDED Status: Active Protocol: Document 07/13/19 14:51 LJ (Rec: 07/13/19 16:33 LJ [email or web address]) PT-Bed Mobility Assessment Supine to Sit Supine to Sit Contact Guard Assistance,1 Person Assistance,Head of Bed Elevated Scooting Scooting to Edge of Bed Standby Assistance Scooting Up and Down in Bed Minimal Assistance PT-Transfer Assessment Sit to and From Stand Sit to and from Stand Contact Guard Assistance,1 Person Assistance,Use of Upper Extremities Equipment Transfer Assistive Device Gait Belt,Front Wheeled Walker Orthotic/Prosthetic Devices or Brace: No Transfers Transfer Destination Bed Transfer Technique ambulated using FWW Transfer Ability Level of Assist Contact Guard Assistance,1 Person Assistance,Use of Upper Extremities Comments Mobility Comments Pt in bed with head of bed elevated. Required CGA-Min assist for bed mobility getting out of bed and CGA to get into bed and Min assist to scoot to head of bed. Pt showed how to use his cane to lift his RLE into the bed and reposition it when in bed. He practised it and was successful. Gait Assessment Gait Gait Assistance Required: Contact Guard Assist Distance (Feet) 140 Able to Maintain Weight Bearing Status Yes During Gait Assistive Devices Assistive Device Gait Belt,Front Wheeled Walker Orthotic/Prosthetic Devices or Brace: No Gait Deviations General Gait Pattern Antalgic,Decreased Stride Length,Decreased Feet Clearance,Flexed Trunk,Step-to Gait Factors Limiting Gait Function Factors Limiting Gait Function Decreased Activity Tolerance, Decreased Sensation,Decreased Strength,Difficulty Following Directions,Pain,Poor Balance, Poor Safety Awareness Comments Gait Comments Pt ambulated in hallway ~140' CGA and SBA with good posture and positioning within FWW. Required one standing rest break at end of walk just outside his room. M5 PT-IP Objective Assessments Start: 07/12/19 12:50 Freq: NEEDED Status: Active Protocol: Document 07/12/19 11:04 AB (Rec: 07/12/19 13:28 AB [id number]) Orientation Orientation/Cognition Level of Alertness Alert Orientation Name,Place,Situation Gross Range of Motion Lower Extremity ROM Assessment Right Impaired Impairments pain inhibiting motion: PROM: 30 deg flexion; lacking ~ 30 deg in extension Strength Lower Extremity Strength Assessment Right Impaired Hip 3+/5 Knee 3+/5 Coordination Assessment Gross Coordination Gross Coordination WNL Sensation Assessment Sensation Gross Sensation WNL Muscle Tone Muscle Tone WNL Yes M6 PT-IP Treatment Start: 07/12/19 12:50 Freq: NEEDED Status: Active Protocol: Document 07/13/19 14:51 MIKE (Rec: 07/13/19 16:33 MIKE [email or web address]) Physical Therapy Treatment Exercises Exercises Gluteal Sets,Quad Sets,Heel Slides Education Education Provided Safety M7 PT-IP Assessment and Plan Start: 07/12/19 12:50 Freq: NEEDED Status: Active Protocol: Document 07/13/19 14:51 MIKE (Rec: 07/13/19 16:33 MIKE [email or web address]) PT Summary Assessment and Plan Potential Rehabilitation Potential Good Summary Impairments Pain,ROM,Strength,Balance, Coordination,Sensation,Tone, Cognition,Bed Mobility, Transfers,Gait,Activity Tolerance Progress Towards Goals Slow Progress due to Pain Assessment Summary Pt is progressing gait distance and is able to use FWW properly. Still with significant ataxia and leaning heavily on FWW. Goals Bed Mobility Goal Independent Transfer Goal Independent,Front Wheeled Walker Gait Goal Independent,Front Wheel Walker Gait Distance 150 Other Goals up/down 1 step using FWW SBA Frequency of Treatment Frequency Of Treatment Twice a Day Treatment Plan Physical Therapy Treatment Plan Bed Mobility Training,Transfer Training,Gait Training, Therapeutic Exercise,Balance Retraining,Post Op Education, Discharge Planning,Hot or Cold Pack,Neuromuscular Re-ed, Coordination Retraining,Manual Therapy Other Recommendations and Next Treatment ambulation, stair training Focus when appropriate Recommendations To Nursing Amount of Assist Needed 1 Person Assist Discharge Recommendations PT Discharge Recommendations Home with 24/7 Assist,Home Health,SNF Rehab Other Discharge Recommendations depending on progress: SNF vs home with 24/7 and HHPT Transportation Needs at Discharge Private Vehicle,Wheelchair/ Cabulance
[2019-07-13 20:00] VITALS: BP 124/70; PULSE 72; RESP 20; TEMP 37
[2019-07-14] VITALS (17 sets, daily range): BP systolic 107–155; BP diastolic 58–88; PULSE 67–91; RESP 13–22; TEMP 36.1–37.1; O2SAT 94–100; BMI 23.3
[2019-07-14] MEDS: HYDROCODONE/ACET 5/325 TABLET 1 TAB PO ×3 (04:42→21:05)
[2019-07-14 05:25] LABS: Add Manual Diff / Slide Review NO; Basophils Absolute Auto 0 /uL (0-100); Basophils Percent Auto 0.7 % (0-2); Eosinophils Absolute Auto 200 /uL (0-450); Eosinophils Percent Auto 2.4 % (2-4); Hematocrit 33.8 % (41-53); Hemoglobin 11.4 g/dL (13.5-17.5); Lymphocytes Absolute Auto 1200 /uL (1100-4500); Lymphocytes Percent Auto 19.5 % (25-40); Mean Corpuscular HGB Conc 33.7 % (30-36); Mean Corpuscular Hemoglobin 31.1 PG (26-34); Mean Corpuscular Volume 92.3 fL (80-100); Monocytes Absolute Auto 800 /uL (0-900); Monocytes Percent Auto 12.2 % (3-14); Neutrophils Absolute Auto 4100 /uL (1500-7000); Neutrophils Percent Auto 65.2 % (50-75); Platelet Count 265 X10^3/uL (150-400); Red Blood Cell Count 3.66 X10^6/uL (4.5-5.9); Red Cell Distribution Width 13.5 % (11.6-14.8); White Blood Cell Count 6.3 X10^3/uL (4.5-11.0)
[2019-07-14 05:49] LABS: C-Reactive Protein Quant 21.4 mg/dL (<1.0)
--- NOTE | 2019-07-14 07:28 | PM.PNPO.1 ---
Subjective Subjective Date Patient Seen: 07/14/19 Time Patient Seen: 07:28 Interval history: He feels his knee is getting worse today. Exam Vital Signs (past 8 hours): - 07/14/19 00:00 07/14/19 04:45 Temperature 98.3 F 98.5 F Pulse Rate 71 71 Respiratory Rate 20 17 Blood Pressure 116/67 136/67 Pulse Oximetry 94 98 Oxygen Delivery Method Room Air Oxygen Flow Rate 0 Const Orientation: alert and oriented x3 Extrem Other: Right knee - minimal drainage, pain with ROM more than 10 deg. Output 80/60/30 Objective Labs Result Diagrams: 07/14/19 04:50 07/11/19 23:45 Labs: Laboratory Results - last 24 hr 07/14/19 07/14/19 04:50 04:50 WBC 6.3 RBC 3.66 L Hgb 11.4 L Hct 33.8 L MCV 92.3 MCH 31.1 MCHC 33.7 RDW 13.5 Plt Count 265 Neut % (Auto) 65.2 Lymph % (Auto) 19.5 L [place] % (Auto) 12.2 Eos % (Auto) 2.4 Baso % (Auto) 0.7 Neut # (Auto) 4100 Lymph # (Auto) 1200 [place] # (Auto) 800 Eos # (Auto) 200 Baso # (Auto) 0 C-Reactive Protein 21.4 H Assessment & Plan Post-op Postoperative Procedures: Procedures Operation Date: 07/12/19 01:25 Actual Procedures Side Surgeon p Incision and Drainage RIGHT INFECTED KNEE Right Steven Frias MD His drain output is slowing and CRP improved, but clinically he is worsening. As he had such heavy purulence at the time of the washout, this was a significant infection. I want to bring him back today (48 hrs) for repeat washout and we will set this up. Risks and benefits of surgery were discussed including not limited to medical risk with heart attack, stroke, , DVT, PE, infection, bleeding, scarring, ongoing infection, stiffness, laxity, failure to alleviate symptoms, need for further surger.
[2019-07-14] MEDS: CEFAZOLIN 2 GM/100 ML FROZ.PIGGY IV ×2 (08:57→16:34)
[2019-07-14] MEDS: SODIUM CHLORIDE 0.9% FLUSH 10 ML IV (08:57)
--- NOTE | 2019-07-14 09:13 | PT-IP ANOTE ---
Attempted to see patient at 9:01, but nursing was administering medication. Came back at 9:13 to initiate treatment and patient had been taken from room to get a wash of R knee.
--- NOTE | 2019-07-14 10:46 | PM.PREOP ---
Pre-operative Note Interval Note History & Physical reviewed/Exam performed by Physician: Yes Changes to H&P: No
[2019-07-14] MEDS: BUPIVACAINE 0.25% W/ EPI 30 ML VIAL INJ (11:57)
[2019-07-14] MEDS: SODIUM CHLORIDE IRRIG SOLUTION 3,000 ML, GENTAMICIN 240 MG IRR (11:58)
--- NOTE | 2019-07-14 12:04 | SUR.OPER ---
GLASSES TO PACU IN LABELED BAG
--- NOTE | 2019-07-14 12:22 | PM.OP.1 ---
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 He been washed out approximately 48 hours earlier. He was still having significant pain and drainage from the wound. It was felt that it was worth a return trip to the operating room for repeat washout. Risks and benefits were discussed and appropriate consent obtained. Surgeon: Steven Frias Click Yes if Unassisted: Yes Anesthesia Type: General Operative Notes Findings: Small amount of purulence Closure Type: primary Specimen(s): none sent Estimated Blood Loss (mL): 2 Procedure in detail: Patient brought to the operating room and intubated on the table. Attention was turned towards the well-marked right knee. Time-out was performed. He had already had his routinely scheduled antibiotics on the floor. The knee was prepped and draped in standard sterile fashion. We opened up his previous arthrotomy and approximately 5 ml of purulent material was suctioned out of the knee. We then copiously irrigated with a 3 L saline bag with antibiotics to washout the knee. A curette was used on some of the inflammatory tissue in the gutter. Once we are done a deep drain was placed. The retinaculum and capsule were closed. Superficial tissue was closed and skin was closed. Sterile dressing was placed. He was brought to the recovery room with no complications. Complications: none Post-operative Condition: stable Disposition: PACU Plan for aftercare: Inpatient. Continue IV antibiotics.
[2019-07-14] MEDS: fentaNYL 100 MCG/2 ML INJ IV (12:50)
--- NOTE | 2019-07-14 13:29 | SUR.PHASEI ---
Patient transferred to the floor. VS stable. IV saline locked. RT knee dressing CDI. HV patent. Glasses with patient. Report given to Peg.
--- NOTE | 2019-07-14 15:25 | PC.NURSE ---
Ortho: Off to OR this am. Returned this afternoon at 1315. Pain in control, got vicodin and fentynal in pacu and both were effective. PPP, brisk cap refill. New dressing is intact and hemovac is compresed with both yellow and red drainage. Diet taken w/out problems. Cont w/poc.
--- NOTE | 2019-07-14 16:01 | PT.IPTN ---
Surgery Performed Operation Date: 07/12/19 01:25 Actual Procedures p Incision and Drainage RIGHT INFECTED KNEE(Right) - Steven Frias MD Operation Date: 07/14/19 10:15 Actual Procedures p Incision and Drainage Knee(Right) - Steven Frias MD Physical Therapy Treatment Note M2 PT-IP Current Condition Start: 07/12/19 12:50 Freq: NEEDED Status: Active Protocol: Document 07/12/19 11:04 AB (Rec: 07/12/19 13:28 AB [id number]) Physical Therapy Current Condition Current Condition Evaluation Date 07/12/19 Treatment Diagnosis septic R knee s/p I&D; difficulty in walking Onset Date 07/12/19 M3 PT-IP Subjective Start: 07/12/19 12:50 Freq: NEEDED Status: Active Protocol: Document 07/14/19 16:01 AB (Rec: 07/14/19 17:16 AB [id number]) Subjective Physical Therapy Visit Type Type Treatment Note Visit Start Time 16:01 Visit Stop Time 16:20 Total Visit Minutes 19 Notes pt underwent another R knee I& D this morning. Number of IP COUNSEL Visits 0 Physical Therapy Visit Comments Patient Comments pt agreeable to do PT Therapy Pain Assessment Pain When Pain Assessed At Rest Pain Present Pain Present Pain Reported Location Right Knee Intensity 6 Scale Used Numeric (1 - 10) Pain Management Techniques Apply Cold,Re-positioning, Timing of Activity with Medications M4 PT-IP Mobility and Gait Start: 07/12/19 12:50 Freq: NEEDED Status: Active Protocol: Document 07/14/19 16:01 AB (Rec: 07/14/19 17:16 AB [id number]) PT-Bed Mobility Assessment Supine to Sit Supine to Sit Standby Assistance Sit to Supine Sit to Supine Minimal Assistance,1 Person Assistance,Bedrails Scooting Scooting to Edge of Bed Standby Assistance PT-Transfer Assessment Sit to and From Stand Sit to and from Stand Minimal Assistance,1 Person Assistance,Use of Upper Extremities Equipment Transfer Assistive Device Gait Belt,Front Wheeled Walker Orthotic/Prosthetic Devices or Brace: No Comments Mobility Comments pt completed supine to sit SBA with increase time needed to complete task. pt completed sit to housing management representative A and cues and ambulated in room ~ 30 ft using FWW CGA. pt requested to go back to bed after ambulation. completed sit to supine min A with LE elevation to bed. positioned pt in bed . call light and table placed within reach. informed pt regarding SNF rehab and pt refused. stated that it is hard on his spouse. asked pt if spouse will be able to assist pt, pt stated we'll see. Gait Assessment Gait Gait Assistance Required: Contact Guard Assist Distance (Feet) 30 Able to Maintain Weight Bearing Status Yes During Gait Assistive Devices Assistive Device Gait Belt,Front Wheeled Walker Orthotic/Prosthetic Devices or Brace: No Gait Deviations General Gait Pattern Antalgic,Decreased Stride Length,Decreased Feet Clearance Factors Limiting Gait Function Factors Limiting Gait Function Decreased Activity Tolerance, Decreased Strength,Difficulty Following Directions,Limited Range of Motion,Pain,Poor Balance,Poor Safety Awareness M5 PT-IP Objective Assessments Start: 07/12/19 12:50 Freq: NEEDED Status: Active Protocol: Document 07/12/19 11:04 AB (Rec: 07/12/19 13:28 AB [id number]) Orientation Orientation/Cognition Level of Alertness Alert Orientation Name,Place,Situation Gross Range of Motion Lower Extremity ROM Assessment Right Impaired Impairments pain inhibiting motion: PROM: 30 deg flexion; lacking ~ 30 deg in extension Strength Lower Extremity Strength Assessment Right Impaired Hip 3+/5 Knee 3+/5 Coordination Assessment Gross Coordination Gross Coordination WNL Sensation Assessment Sensation Gross Sensation WNL Muscle Tone Muscle Tone WNL Yes M6 PT-IP Treatment Start: 07/12/19 12:50 Freq: NEEDED Status: Active Protocol: Document 07/14/19 16:01 AB (Rec: 07/14/19 17:16 AB [id number]) Physical Therapy Treatment Exercises Exercises Heel Slides Knee ROM Measurement ~50 Education Education Provided Safety M7 PT-IP Assessment and Plan Start: 07/12/19 12:50 Freq: NEEDED Status: Active Protocol: Document 07/14/19 16:01 AB (Rec: 07/14/19 17:16 AB [id number]) PT Summary Assessment and Plan Potential Rehabilitation Potential Good Summary Impairments Pain,ROM,Strength,Balance, Coordination,Bed Mobility, Transfers,Gait,Activity Tolerance Progress Towards Goals Slow Progress due to Pain,Slow Progress due to Medical Issues,Slow Progress due to Activity Tolerance Assessment Summary pt requiring min A with sit to stand and CGA with ambulation . pt is not sure if spouse will be able to assist him at home but refuses to go to SNF. d/c plan depending on mobility level and if pt goes home, will require HHPT. Goals Bed Mobility Goal Independent Transfer Goal Independent,Front Wheeled Walker Gait Goal Independent,Front Wheel Walker Gait Distance 150 Other Goals up/down 1 step using FWW SBA Days to Meet Goals 10 Frequency of Treatment Frequency Of Treatment Twice a Day Treatment Plan Physical Therapy Treatment Plan Bed Mobility Training,Transfer Training,Gait Training, Therapeutic Exercise,Balance Retraining,Post Op Education, Discharge Planning,Hot or Cold Pack,Neuromuscular Re-ed, Coordination Retraining,Manual Therapy Other Recommendations and Next Treatment ambulation, stair training Focus when appropriate Recommendations To Nursing Amount of Assist Needed 1 Person Assist Discharge Recommendations PT Discharge Recommendations Home with 24/7 Assist,Home Health,SNF Rehab Other Discharge Recommendations depending on progress: SNF vs home with 24/7 and HHPT Equipment Needed for Home Before FWW Discharge Transportation Needs at Discharge Private Vehicle,Wheelchair/ Cabulance
[2019-07-14] MEDS: DOCUSATE 100 MG CAPSULE PO (21:05)
[2019-07-15] MEDS: CEFAZOLIN 2 GM/100 ML FROZ.PIGGY IV ×3 (00:33→17:32)
[2019-07-15] MEDS: HYDROMORPHONE 0.5 MG INJ 0.2 MG IV (03:26)
[2019-07-15 03:32] VITALS: BP 135/71; PULSE 70; RESP 20; TEMP 36.7; O2SAT 98
[2019-07-15] MEDS: HYDROCODONE/ACET 5/325 TABLET 1 TAB PO (04:56)
[2019-07-15 08:00] VITALS: BP 146/88; PULSE 83; RESP 20; TEMP 36.7; O2SAT 97
[2019-07-15] MEDS: SODIUM CHLORIDE 0.9% FLUSH 10 ML IV ×2 (08:00→20:28)
[2019-07-15] MEDS: DOCUSATE 100 MG CAPSULE PO ×2 (08:00→20:28)
[2019-07-15] MEDS: IBUPROFEN 400 MG TABLET PO (09:13)
[2019-07-15] MEDS: HYDROCODONE/ACET 5/325 TABLET 2 TAB PO ×2 (09:14→20:28)
--- NOTE | 2019-07-15 09:15 | PM.PNPO.1 ---
Subjective Subjective Date Patient Seen: 07/15/19 Time Patient Seen: 09:15 Interval history: Leg feels a little bit better but still fair amount of pain. Exam Vital Signs (past 8 hours): - 07/15/19 03:32 07/15/19 08:00 Temperature 98.0 F 98.0 F Pulse Rate 70 83 Respiratory Rate 20 20 Blood Pressure 135/71 146/88 H Pulse Oximetry 98 97 Oxygen Delivery Method Room Air Oxygen Flow Rate 0 Const Orientation: alert and oriented x3 Extrem Other: Dressing clean dry intact. Drain output 25, 30, 50, appears to be clear yellow. Pain with more than 10? range of motion knee. Decreased edema in leg, soft calf Objective Labs Result Diagrams: 07/14/19 04:50 07/11/19 23:45 Assessment & Plan Post-op Postoperative Procedures: Procedures Operation Date: 07/12/19 01:25 Actual Procedures Side Surgeon p Incision and Drainage RIGHT INFECTED KNEE Right Steven Frias MD Operation Date: 07/14/19 10:15 Actual Procedures Side Surgeon p Incision and Drainage Knee Right Steven Frias MD Now status post 2nd washout of her right knee. Drainage out of the knee is clear yellow, does not look like thien pus from earlier, maybe more synovial fluid. Continue IV antibiotics. I will recheck him again in the morning 48 hours after surgery. If still bad, consider repeat trip to the operating room.
--- NOTE | 2019-07-15 10:16 | PT.IPTN ---
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) Surgery Performed Operation Date: 07/12/19 01:25 Actual Procedures p Incision and Drainage RIGHT INFECTED KNEE(Right) - Steven Frias MD Operation Date: 07/14/19 10:15 Actual Procedures p Incision and Drainage Knee(Right) - Steven Frias MD Physical Therapy Treatment Note M2 PT-IP Current Condition Start: 07/12/19 12:50 Freq: NEEDED Status: Active Protocol: Document 07/12/19 11:04 AB (Rec: 07/12/19 13:28 AB [id number]) Physical Therapy Current Condition Current Condition Evaluation Date 07/12/19 Treatment Diagnosis septic R knee s/p I&D; difficulty in walking Onset Date 07/12/19 M3 PT-IP Subjective Start: 07/12/19 12:50 Freq: NEEDED Status: Active Protocol: Document 07/15/19 09:44 LJ (Rec: 07/15/19 10:16 LJ [id number]) Subjective Physical Therapy Visit Type Type Treatment Note Visit Start Time 09:44 Visit Stop Time 10:11 Total Visit Minutes 27 Physical Therapy Visit Comments Patient Comments pt agreeable to do PT Therapy Pain Assessment Pain When Pain Assessed At Rest Pain Present Pain Present Reassessed M4 PT-IP Mobility and Gait Start: 07/12/19 12:50 Freq: NEEDED Status: Active Protocol: Document 07/15/19 09:44 LJ (Rec: 07/15/19 10:16 LJ [id number]) PT-Transfer Assessment Sit to and From Stand Sit to and from Stand Minimal Assistance,1 Person Assistance,Use of Upper Extremities Equipment Transfer Assistive Device Gait Belt,Front Wheeled Walker Orthotic/Prosthetic Devices or Brace: No Comments Mobility Comments Pt requiring Beti to complete the tranfer to get to a complete standing. Stand to sit SBA. Gait Assessment Gait Gait Assistance Required: Contact Guard Assist Distance (Feet) 200 Able to Maintain Weight Bearing Status Yes During Gait Assistive Devices Assistive Device Gait Belt,Front Wheeled Walker Orthotic/Prosthetic Devices or Brace: No Gait Deviations General Gait Pattern Antalgic,Decreased Stride Length,Decreased Feet Clearance Factors Limiting Gait Function Factors Limiting Gait Function Decreased Activity Tolerance, Decreased Strength,Difficulty Following Directions,Limited Range of Motion,Pain,Poor Balance,Poor Safety Awareness Comments Gait Comments Pt ambulated in hallway CGA with 2 rest breaks. Cues for reducing shoulder shrug M5 PT-IP Objective Assessments Start: 07/12/19 12:50 Freq: NEEDED Status: Active Protocol: Document 07/12/19 11:04 AB (Rec: 07/12/19 13:28 AB [id number]) Orientation Orientation/Cognition Level of Alertness Alert Orientation Name,Place,Situation Gross Range of Motion Lower Extremity ROM Assessment Right Impaired Impairments pain inhibiting motion: PROM: 30 deg flexion; lacking ~ 30 deg in extension Strength Lower Extremity Strength Assessment Right Impaired Hip 3+/5 Knee 3+/5 Coordination Assessment Gross Coordination Gross Coordination WNL Sensation Assessment Sensation Gross Sensation WNL Muscle Tone Muscle Tone WNL Yes M6 PT-IP Treatment Start: 07/12/19 12:50 Freq: NEEDED Status: Active Protocol: Document 07/15/19 09:44 LJ (Rec: 07/15/19 10:16 LJ [id number]) Physical Therapy Treatment Exercises Exercises Gluteal Sets,Heel Slides Education Education Provided Safety M7 PT-IP Assessment and Plan Start: 07/12/19 12:50 Freq: NEEDED Status: Active Protocol: Document 07/15/19 09:44 LJ (Rec: 07/15/19 10:16 LJ [id number]) PT Summary Assessment and Plan Potential Rehabilitation Potential Good Summary Impairments Pain,ROM,Strength,Balance, Coordination,Bed Mobility, Transfers,Gait,Activity Tolerance Progress Towards Goals Slow Progress due to Pain,Slow Progress due to Medical Issues,Slow Progress due to Activity Tolerance Assessment Summary Pt requires Beti for completing a sit>stand. Tends to not scoot to edge of chair completely and lacks hip flexion for easier standing. Controlled descent into chair. Pt left in chair with all needs Goals Bed Mobility Goal Independent Transfer Goal Independent,Front Wheeled Walker Gait Goal Independent,Front Wheel Walker Gait Distance 150 Other Goals up/down 1 step using FWW SBA Days to Meet Goals 10 Frequency of Treatment Frequency Of Treatment Twice a Day Treatment Plan Physical Therapy Treatment Plan Bed Mobility Training,Transfer Training,Gait Training, Therapeutic Exercise,Balance Retraining,Post Op Education, Discharge Planning,Hot or Cold Pack,Neuromuscular Re-ed, Coordination Retraining,Manual Therapy Other Recommendations and Next Treatment ambulation, stair training Focus when appropriate Recommendations To Nursing Amount of Assist Needed 1 Person Assist Discharge Recommendations PT Discharge Recommendations Home with 29/12 Assist,Home Health,SNF Rehab Other Discharge Recommendations depending on progress: SNF vs home with 24/7 and HHPT Equipment Needed for Home Before FWW Discharge Transportation Needs at Discharge Private Vehicle,Wheelchair/ Cabulance
[2019-07-15 12:00] VITALS: BP 117/72; PULSE 76; RESP 20; TEMP 36.5; O2SAT 97
--- NOTE | 2019-07-15 13:15 | PT.IPTN ---
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) Surgery Performed Operation Date: 07/12/19 01:25 Actual Procedures p Incision and Drainage RIGHT INFECTED KNEE(Right) - Steven Frias MD Operation Date: 07/14/19 10:15 Actual Procedures p Incision and Drainage Knee(Right) - Steven Frias MD Physical Therapy Treatment Note M2 PT-IP Current Condition Start: 07/12/19 12:50 Freq: NEEDED Status: Active Protocol: Document 07/12/19 11:04 AB (Rec: 07/12/19 13:28 AB [id number]) Physical Therapy Current Condition Current Condition Evaluation Date 07/12/19 Treatment Diagnosis septic R knee s/p I&D; difficulty in walking Onset Date 07/12/19 M3 PT-IP Subjective Start: 07/12/19 12:50 Freq: NEEDED Status: Active Protocol: Document 07/15/19 13:15 AB (Rec: 07/15/19 14:16 AB [id number]) Subjective Physical Therapy Visit Type Type Treatment Note Visit Start Time 13:15 Visit Stop Time 13:47 Total Visit Minutes 32 Number of ROBOTICS TECHNOLOGIST Visits 0 Physical Therapy Visit Comments Patient Comments pt agreeable to do PT Therapy Pain Assessment Pain When Pain Assessed At Rest Pain Present Pain Present Pain Reported Location Right Knee Intensity 2 Scale Used increases to 8/10 with mobility Pain Management Techniques Re-positioning,Timing of Activity with Medications M4 PT-IP Mobility and Gait Start: 07/12/19 12:50 Freq: NEEDED Status: Active Protocol: Document 07/15/19 13:15 AB (Rec: 07/15/19 14:16 AB [id number]) PT-Transfer Assessment Sit to and From Stand Sit to and from Stand Standby Assistance,1 Person Assistance Equipment Transfer Assistive Device Gait Belt,Front Wheeled Walker Orthotic/Prosthetic Devices or Brace: No Gait Assessment Gait Gait Assistance Required: Standby Assistance Distance (Feet) 150 Able to Maintain Weight Bearing Status Yes During Gait Assistive Devices Assistive Device Gait Belt,Front Wheeled Walker Orthotic/Prosthetic Devices or Brace: No Gait Deviations General Gait Pattern Antalgic Factors Limiting Gait Function Factors Limiting Gait Function Decreased Activity Tolerance, Decreased Strength,Limited Range of Motion,Pain,Poor Balance Comments Gait Comments pt ambulated ~ 150 ft using FWW SBA towards the stairs and completed. ambulated back towards the room 125 ft using FWW SBA. Pt assisted back to his room the rest of the way and pt ambulated from w/c to chair SBA using FWW. positioned pt on chair. call light and table placed within reach. chair alarm set up. Stair Climbing Assessment Evaluation Level of Assist On Stairs Minimal Assistance,1 Person Assistance Devices Stair Climbing Assistive Devices Front Wheel Walker Technique/Endurance Stair Climbing Direction Ascend and Descend Stair Climbing Technique Step to Step Number of Steps Climbed 1 Stair Climbing Set # Repetitions (reps) 2 Comments Stair Climbing Comments completed up/down platform step using FWW min A and cues. slight R knee buckling ascending requiring min A for stability. M5 PT-IP Objective Assessments Start: 07/12/19 12:50 Freq: NEEDED Status: Active Protocol: Document 07/12/19 11:04 AB (Rec: 07/12/19 13:28 AB [id number]) Orientation Orientation/Cognition Level of Alertness Alert Orientation Name,Place,Situation Gross Range of Motion Lower Extremity ROM Assessment Right Impaired Impairments pain inhibiting motion: PROM: 30 deg flexion; lacking ~ 30 deg in extension Strength Lower Extremity Strength Assessment Right Impaired Hip 3+/5 Knee 3+/5 Coordination Assessment Gross Coordination Gross Coordination WNL Sensation Assessment Sensation Gross Sensation WNL Muscle Tone Muscle Tone WNL Yes M6 PT-IP Treatment Start: 07/12/19 12:50 Freq: NEEDED Status: Active Protocol: Document 07/15/19 13:15 AB (Rec: 07/15/19 14:16 AB [id number]) Physical Therapy Treatment Education Education Provided Safety M7 PT-IP Assessment and Plan Start: 07/12/19 12:50 Freq: NEEDED Status: Active Protocol: Document 07/15/19 13:15 AB (Rec: 07/15/19 14:16 AB [id number]) PT Summary Assessment and Plan Potential Rehabilitation Potential Good Summary Impairments Pain,ROM,Strength,Balance, Coordination,Sensation,Tone, Cognition,Bed Mobility, Transfers,Gait,Activity Tolerance Progress Towards Goals Progressing Toward Goals Assessment Summary pt progressing with mobility. requiring min A with stair climbing. asked pt if there can be somebody to assist him even with just for stair climbing and pt said no. pt is determined to go home. will continue to assess progress. Nurse informed that pt will go for another I&D tomorrow and will reassess mobility. Goals Bed Mobility Goal Independent Transfer Goal Independent,Front Wheeled Walker Gait Goal Independent,Front Wheel Walker Gait Distance 150 Other Goals up/down 1 step using FWW SBA Days to Meet Goals 10 Frequency of Treatment Frequency Of Treatment Twice a Day Treatment Plan Physical Therapy Treatment Plan Bed Mobility Training,Transfer Training,Gait Training, Therapeutic Exercise,Balance Retraining,Post Op Education, Discharge Planning,Hot or Cold Pack,Neuromuscular Re-ed, Coordination Retraining,Manual Therapy Other Recommendations and Next Treatment ambulation, stair training Focus when appropriate Recommendations To Nursing Amount of Assist Needed 1 Person Assist Discharge Recommendations PT Discharge Recommendations Home with 24/7 Assist,Home Health,SNF Rehab Other Discharge Recommendations depending on progress: SNF vs home with 24/7 and HHPT Equipment Needed for Home Before FWW Discharge Transportation Needs at Discharge Private Vehicle,Wheelchair/ Cabulance
[2019-07-15 15:33] VITALS: BP 124/61; PULSE 70; RESP 18; TEMP 36; O2SAT 98
[2019-07-15 19:42] VITALS: BP 134/72; PULSE 70; RESP 18; TEMP 36.2; O2SAT 100
[2019-07-16] VITALS (7 sets, daily range): BP systolic 119–147; BP diastolic 58–71; PULSE 68–95; RESP 16–21; TEMP 36.3–37.7; O2SAT 93–100
[2019-07-16] MEDS: IBUPROFEN 400 MG TABLET PO (00:10)
[2019-07-16] MEDS: SODIUM CHLORIDE 0.9% FLUSH 10 ML IV ×3 (00:11→20:17)
[2019-07-16] MEDS: SODIUM CHLORIDE 0.9% 250 ML 21 ML IV (00:17)
[2019-07-16] MEDS: CEFAZOLIN 2 GM/100 ML FROZ.PIGGY IV (00:17)
[2019-07-16] MEDS: HYDROCODONE/ACET 5/325 TABLET 2 TAB PO (04:55)
[2019-07-16 06:01] LABS: C-Reactive Protein Quant 12.7 mg/dL (<1.0)
--- NOTE | 2019-07-16 06:49 | PC.NURSE ---
Pt with +CMS in RLE. q4hr neurovascular intact. Describes RLE as heavy. Edema to RLE decreased in past 24hrs. Romel wrap, gauze dressing and sutures to right knee. Site without redness, drainage, cool to touch. Pt using towel to splint right knee while in bed. Hemovac draining yellow fluid of 75cc overnight. Emptied and compressed. Pt reported pain improved. Rates 4-6/10. Medication given with relief per pt. Pt with constipation. Stool meds given yesterday. Will offer further bowel meds, prune juice when pt not NPO. Plan for #3 I&D today. Pt NPO since MN. Pt had 275cc UOP overnight. Will enc PO fluids post-op. 1 person assist, gait belt, FWW transfer to .
--- NOTE | 2019-07-16 08:01 | PM.PNPO.1 ---
Subjective Subjective Date Patient Seen: 07/16/19 Time Patient Seen: 08:01 Interval history: The knee feels a little bit better. Although it is still quite painful. Exam Vital Signs (past 8 hours): - 07/16/19 00:20 07/16/19 04:50 Temperature 99.9 F H 98.1 F Pulse Rate 80 86 Respiratory Rate 17 21 Blood Pressure 126/65 146/71 H Pulse Oximetry 93 100 Oxygen Delivery Method Room Air Oxygen Flow Rate 0 Const Orientation: alert and oriented x3 Extrem Other: Right knee minimal drainage. Drain output 50/50/45, mostly clear yellow. 15 degree range of motion of the knee. Objective Labs Result Diagrams: 07/14/19 04:50 07/11/19 23:45 Labs: Laboratory Results - last 24 hr 07/16/19 05:16 C-Reactive Protein 12.7 H Assessment & Plan Post-op Postoperative Procedures: Procedures Operation Date: 07/12/19 01:25 Actual Procedures Side Surgeon p Incision and Drainage RIGHT INFECTED KNEE Right Steven Frias MD Operation Date: 07/14/19 10:15 Actual Procedures Side Surgeon p Incision and Drainage Knee Right Steven Frias MD He has much less drainage than he did before his last washout, most likely this is synovial fluid. His C-reactive protein continues to slowly improve. I do not think we need to return to the operating room today. I will recheck him again in the morning, possibly discharge him home tomorrow if everything looks good. He will require at least another week of IV antibiotics before switching over to orals. We are currently trying to work on getting that set up for him. I will change him over to ceftriaxone today so he can have a once a day antibiotic.
[2019-07-16] MEDS: CEFTRIAXONE 2 GM/50 ML FROZ.PIGGY IV (08:34)
[2019-07-16] MEDS: HYDROCODONE/ACET 5/325 TABLET 1 TAB PO ×3 (08:35→19:15)
[2019-07-16] MEDS: DOCUSATE 100 MG CAPSULE PO ×2 (08:35→20:17)
--- NOTE | 2019-07-16 11:15 | PT.IPTN ---
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) Surgery Performed Operation Date: 07/12/19 01:25 Actual Procedures p Incision and Drainage RIGHT INFECTED KNEE(Right) - Steven Frias MD Operation Date: 07/14/19 10:15 Actual Procedures p Incision and Drainage Knee(Right) - Steven Frias MD Physical Therapy Treatment Note M2 PT-IP Current Condition Start: 07/12/19 12:50 Freq: NEEDED Status: Active Protocol: Document 07/12/19 11:04 AB (Rec: 07/12/19 13:28 AB [id number]) Physical Therapy Current Condition Current Condition Evaluation Date 07/12/19 Treatment Diagnosis septic R knee s/p I&D; difficulty in walking Onset Date 07/12/19 M3 PT-IP Subjective Start: 07/12/19 12:50 Freq: NEEDED Status: Active Protocol: Document 07/16/19 11:15 AB (Rec: 07/16/19 12:46 AB [id number]) Subjective Physical Therapy Visit Type Type Treatment Note Visit Start Time 11:15 Visit Stop Time 11:38 Total Visit Minutes 23 Number of PATENT LEGAL ASSISTANT Visits 0 Physical Therapy Visit Comments Patient Comments pt agreeable to do PT Therapy Pain Assessment Pain When Pain Assessed During Mobility Pain Present Pain Present Pain Reported Location Right Knee Intensity 6 Scale Used Numeric (1 - 10) Pain Management Techniques Re-positioning,Timing of Activity with Medications M4 PT-IP Mobility and Gait Start: 07/12/19 12:50 Freq: NEEDED Status: Active Protocol: Document 07/16/19 11:15 AB (Rec: 07/16/19 12:46 AB [id number]) PT-Transfer Assessment Sit to and From Stand Sit to and from Stand Standby Assistance,1 Person Assistance,Use of Upper Extremities Equipment Transfer Assistive Device Gait Belt,Front Wheeled Walker Orthotic/Prosthetic Devices or Brace: No Gait Assessment Gait Gait Assistance Required: Standby Assistance,Contact Guard Assist Distance (Feet) 125 Able to Maintain Weight Bearing Status Yes During Gait Assistive Devices Assistive Device Gait Belt,Front Wheeled Walker Orthotic/Prosthetic Devices or Brace: No Gait Deviations General Gait Pattern Antalgic,Decreased Stride Length,Decreased Feet Clearance Factors Limiting Gait Function Factors Limiting Gait Function Decreased Activity Tolerance, Decreased Strength,Limited Range of Motion,Pain,Poor Balance Comments Gait Comments pt sitting on chair. completed sit to stand SBA. ambulated ~ 125 ft SBA to occasional CGA. completed up/ down platform step using FWW. ambulated back to room ~ 50 ft SBA. positioned on chair. call light and table placed within reach. Stair Climbing Assessment Evaluation Level of Assist On Stairs Contact Guard Assistance, Minimal Assistance,1 Person Assistance Devices Stair Climbing Assistive Devices Front Wheel Walker Technique/Endurance Stair Climbing Direction Ascend and Descend Stair Climbing Technique Step to Step Number of Steps Climbed 1 Stair Climbing Set # Repetitions (reps) 2 M5 PT-IP Objective Assessments Start: 07/12/19 12:50 Freq: NEEDED Status: Active Protocol: Document 07/12/19 11:04 AB (Rec: 07/12/19 13:28 AB [id number]) Orientation Orientation/Cognition Level of Alertness Alert Orientation Name,Place,Situation Gross Range of Motion Lower Extremity ROM Assessment Right Impaired Impairments pain inhibiting motion: PROM: 30 deg flexion; lacking ~ 30 deg in extension Strength Lower Extremity Strength Assessment Right Impaired Hip 3+/5 Knee 3+/5 Coordination Assessment Gross Coordination Gross Coordination WNL Sensation Assessment Sensation Gross Sensation WNL Muscle Tone Muscle Tone WNL Yes M6 PT-IP Treatment Start: 07/12/19 12:50 Freq: NEEDED Status: Active Protocol: Document 07/16/19 11:15 AB (Rec: 07/16/19 12:46 AB [id number]) Physical Therapy Treatment Education Education Provided Safety M7 PT-IP Assessment and Plan Start: 07/12/19 12:50 Freq: NEEDED Status: Active Protocol: Document 07/16/19 11:15 AB (Rec: 07/16/19 12:46 AB [id number]) PT Summary Assessment and Plan Potential Rehabilitation Potential Good Summary Impairments Pain,ROM,Strength,Balance, Coordination,Sensation,Tone, Cognition,Bed Mobility, Transfers,Gait,Activity Tolerance Progress Towards Goals Slow Progress due to Medical Issues Assessment Summary pt requiring SBA to CGA with ambulation using FWW. completed up/down platform step CGA to min A and cues. pt progressing with mobility and will continue to work towards goals. pt plans to go home when stable. Goals Bed Mobility Goal Independent Transfer Goal Independent,Front Wheeled Walker Gait Goal Independent,Front Wheel Walker Gait Distance 150 Other Goals up/down 1 step using FWW SBA Days to Meet Goals 10 Frequency of Treatment Frequency Of Treatment Twice a Day Treatment Plan Physical Therapy Treatment Plan Bed Mobility Training,Transfer Training,Gait Training, Therapeutic Exercise,Balance Retraining,Post Op Education, Discharge Planning,Hot or Cold Pack,Neuromuscular Re-ed, Coordination Retraining,Manual Therapy Other Recommendations and Next Treatment ambulation, stair training Focus when appropriate Recommendations To Nursing Amount of Assist Needed 1 Person Assist Discharge Recommendations PT Discharge Recommendations Home with Assistance, Outpatient PT Transportation Needs at Discharge Private Vehicle
[2019-07-16] MEDS: polyethylene glycoL 3350 17 GM POWD.PACK PO (11:42)
[2019-07-16] MEDS: MAGNESIUM HYDROXIDE 30 ML UDC PO (11:42)
[2019-07-16] MEDS: BISACODYL 10 MG SUPP PR (13:07)
--- NOTE | 2019-07-16 14:56 | PT.IPTN ---
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) Surgery Performed Operation Date: 07/12/19 01:25 Actual Procedures p Incision and Drainage RIGHT INFECTED KNEE(Right) - Steven Frias MD Operation Date: 07/14/19 10:15 Actual Procedures p Incision and Drainage Knee(Right) - Steven Frias MD Physical Therapy Treatment Note M2 PT-IP Current Condition Start: 07/12/19 12:50 Freq: NEEDED Status: Active Protocol: Document 07/12/19 11:04 AB (Rec: 07/12/19 13:28 AB [id number]) Physical Therapy Current Condition Current Condition Evaluation Date 07/12/19 Treatment Diagnosis septic R knee s/p I&D; difficulty in walking Onset Date 07/12/19 M3 PT-IP Subjective Start: 07/12/19 12:50 Freq: NEEDED Status: Active Protocol: Document 07/16/19 14:56 AB (Rec: 07/16/19 15:39 AB [id number]) Subjective Physical Therapy Visit Type Type Treatment Note Visit Start Time 14:56 Visit Stop Time 15:25 Total Visit Minutes 29 Number of CONFECTIONERY MAKER Visits 0 Physical Therapy Visit Comments Patient Comments pt agreeable to do PT Therapy Pain Assessment Pain When Pain Assessed During Mobility Pain Present Pain Present Pain Reported Location Right Knee Intensity 6 Scale Used Numeric (1 - 10) Pain Management Techniques Timing of Activity with Medications M4 PT-IP Mobility and Gait Start: 07/12/19 12:50 Freq: NEEDED Status: Active Protocol: Document 07/16/19 14:56 AB (Rec: 07/16/19 15:39 AB [id number]) PT-Bed Mobility Assessment Supine to Sit Supine to Sit Standby Assistance PT-Transfer Assessment Sit to and From Stand Sit to and from Stand Standby Assistance Equipment Transfer Assistive Device Gait Belt,Front Wheeled Walker Orthotic/Prosthetic Devices or Brace: No Transfers Transfer Destination Toilet Transfer Technique ambulated using FWW Transfer Ability Level of Assist Standby Assistance,1 Person Assistance,Use of Upper Extremities Comments Mobility Comments completed supine to sit SBA with increase time needed to complete task. completed sit to stand SBA. ambulated ~ 60 ft using FWW SBA. completed up/down platform step CGA to min A and cues for safety. pt ambulated from the w/c to the toilet SBA. pt wants to sit on the toilet for awhile. call light placed within reach . informed [facility] that pt is using the toilet. Gait Assessment Gait Gait Assistance Required: Standby Assistance Distance (Feet) 60 Able to Maintain Weight Bearing Status Yes During Gait Assistive Devices Assistive Device Gait Belt,Front Wheeled Walker Orthotic/Prosthetic Devices or Brace: No Gait Deviations General Gait Pattern Antalgic,Decreased Stride Length,Decreased Feet Clearance Factors Limiting Gait Function Factors Limiting Gait Function Decreased Activity Tolerance, Decreased Strength,Limited Range of Motion,Pain,Poor Balance Stair Climbing Assessment Evaluation Level of Assist On Stairs Contact Guard Assistance, Minimal Assistance Devices Stair Climbing Assistive Devices Front Wheel Walker Technique/Endurance Stair Climbing Direction Ascend and Descend Stair Climbing Technique Step to Step Number of Steps Climbed 1 Stair Climbing Set # Repetitions (reps) 2 Comments Stair Climbing Comments completed up/down platform step x 2 sets. required min A and cues for first set and only required CGA and cues for 2nd set. M5 PT-IP Objective Assessments Start: 07/12/19 12:50 Freq: NEEDED Status: Active Protocol: Document 07/12/19 11:04 AB (Rec: 07/12/19 13:28 AB [id number]) Orientation Orientation/Cognition Level of Alertness Alert Orientation Name,Place,Situation Gross Range of Motion Lower Extremity ROM Assessment Right Impaired Impairments pain inhibiting motion: PROM: 30 deg flexion; lacking ~ 30 deg in extension Strength Lower Extremity Strength Assessment Right Impaired Hip 3+/5 Knee 3+/5 Coordination Assessment Gross Coordination Gross Coordination WNL Sensation Assessment Sensation Gross Sensation WNL Muscle Tone Muscle Tone WNL Yes M6 PT-IP Treatment Start: 07/12/19 12:50 Freq: NEEDED Status: Active Protocol: Document 07/16/19 14:56 AB (Rec: 07/16/19 15:39 AB [id number]) Physical Therapy Treatment Education Education Provided Safety M7 PT-IP Assessment and Plan Start: 07/12/19 12:50 Freq: NEEDED Status: Active Protocol: Document 07/16/19 14:56 AB (Rec: 07/16/19 15:39 AB [id number]) PT Summary Assessment and Plan Potential Rehabilitation Potential Good Summary Impairments Pain,ROM,Strength,Balance,Bed Mobility,Transfers,Gait, Activity Tolerance Progress Towards Goals Progressing Toward Goals Assessment Summary pt requiring SBA with bed mobility, transfers and ambulation using FWW. requires CGA to min A with stair climbing. pt plans to go home but spouse will not be able to assist him. stated that they have a friend who can assist as needed. pt will benefit from homehealth PT. Goals Bed Mobility Goal Independent Transfer Goal Independent,Front Wheeled Walker Gait Goal Independent,Front Wheel Walker Gait Distance 150 Other Goals up/down 1 step using FWW SBA Days to Meet Goals 10 Frequency of Treatment Frequency Of Treatment Twice a Day Treatment Plan Physical Therapy Treatment Plan Bed Mobility Training,Transfer Training,Gait Training, Therapeutic Exercise,Balance Retraining,Post Op Education, Discharge Planning,Hot or Cold Pack,Neuromuscular Re-ed, Coordination Retraining,Manual Therapy Other Recommendations and Next Treatment ambulation, stair training Focus Recommendations To Nursing Amount of Assist Needed 1 Person Assist Discharge Recommendations PT Discharge Recommendations Home with Assistance,Home Health Transportation Needs at Discharge Private Vehicle
--- NOTE | 2019-07-16 20:50 | PC.NURSE ---
Pt tolerated PICC placement well, flushes nicely and good draw back. Pt had one [place] this shift with good results; denying pain. Knee is edematous. Pt is eating and drinking has had a BM and voids qs. His VSS, S1, S2 with murmur, LS clear. Pleasant and cooperative, A and O x 4.
[2019-07-17] VITALS (13 sets, daily range): BP systolic 123–155; BP diastolic 65–84; PULSE 66–93; RESP 12–20; TEMP 36.2–37.4; O2SAT 94–100
[2019-07-17] MEDS: HYDROCODONE/ACET 5/325 TABLET 2 TAB PO ×3 (00:44→20:50)
--- NOTE | 2019-07-17 08:34 | PM.PNPO.1 ---
Subjective Subjective Date Patient Seen: 07/17/19 Time Patient Seen: 08:34 Interval history: Knee still feels about the same hurts to walk on. Exam Vital Signs (past 8 hours): - 07/17/19 03:00 07/17/19 07:38 Temperature 99.4 F 98.4 F Pulse Rate 85 69 Respiratory Rate 20 16 Blood Pressure 123/73 132/65 Pulse Oximetry 96 96 Oxygen Delivery Method Room Air Oxygen Flow Rate 0 Const Orientation: alert and oriented x3 Extrem Other: Right knee drain output 80/10/100. Drainage clear yellow with some thick cloudy component. Can go through a 30 degree arc of motion. Objective Labs Result Diagrams: 07/14/19 04:50 07/11/19 23:45 Assessment & Plan Post-op Postoperative Procedures: Procedures Operation Date: 07/12/19 01:25 Actual Procedures Side Surgeon p Incision and Drainage RIGHT INFECTED KNEE Right Steven Frias MD Operation Date: 07/14/19 10:15 Actual Procedures Side Surgeon p Incision and Drainage Knee Right Steven Frias MD He is having increasing drainage in its getting thick again. It is worth 1 more look to make sure that there is no recurrent infection. Range do a repeat debridement this morning. Risks and benefits again were discussed and appropriate consent obtained.
[2019-07-17] MEDS: SODIUM CHLORIDE 0.9% 250 ML 21 ML IV (08:54)
[2019-07-17] MEDS: SODIUM CHLORIDE 0.9% FLUSH 10 ML IV ×3 (08:54→09:54)
[2019-07-17] MEDS: CEFTRIAXONE 2 GM/50 ML FROZ.PIGGY IV (08:54)
[2019-07-17] MEDS: HYDROMORPHONE 0.5 MG INJ 0.2 MG IV (09:07)
--- NOTE | 2019-07-17 09:47 | PC.NURSE ---
Addendum entered by Sharita Keane R.N. 07/17/19 13:38: Pt assisted back to bed with SBA using FWW from chair at 1330. OR team present to take pt to surgery. Pt left unit with his glasses and bilateral hearing aids in. Pt left unit at 1336 to OR. Original Note: Day Shift- Pt A&OX4, able to make needs known using call light, bed alarm on. NPO for surgery today. Right knee gauze and coban wrap dressing CDI, redness to distal end of dressing, surrounding edema extending to right foot, pitting 3+. ice pack on intermittently. Encouraged ankle pump exercises and SCD placed to RLE per order, pt agreeable. SUMIT marked as midline, white line with clamp, per hospital policy flush orders for NS and Heparin placed.
--- NOTE | 2019-07-17 10:30 | PT-IP ANOTE ---
Pt scheduled for surgery at noon and pt states that he would not like to get up before surgery due to pain.
[2019-07-17] MEDS: LACTATED RINGERS 1,000 ML 42 ML IV (13:45)
--- NOTE | 2019-07-17 14:37 | PM.OP.1 ---
Operative Date/Time/Diagnoses Date of procedure: 07/17/19 Time of procedure: 14:37 Pre-op diagnosis: Septic right knee with Staph aureus Post-op diagnosis: same Procedure & Clinicians Procedure: Repeat irrigation debridement of right knee Same procedure as scheduled: Yes Indications: 78-year-old male with septic right knee. He began having increasing thick output from his drain. Is felt that he was reaccumulating a possible infection and should go back for 1 more washout. Risks and benefits surgery were again discussed and appropriate consent obtained. Surgeon: Steven Frias Click Yes if Unassisted: Yes Anesthesia Type: General Operative Notes Findings: None Closure Type: primary Specimen(s): none sent Estimated Blood Loss (mL): 5 Procedure in detail: Patient brought the operating room and intubated on the table. Time-out was performed. He had already had his regular scheduled antibiotics earlier. The well-marked right leg was prepped and draped in standard sterile fashion. We had to scalpel to open his previous arthrotomy. There were a few small chunks of thick tissue but this was mostly bloody fluid with no evidence of any purulence. We used a curette to clear out the gutters and suprapatellar pouch. We then used copious irrigation with 3 L of fluid on the joint. Everything appeared clean at this point. A deep drain was placed. The retinaculum in capsule were closed. Superficial tissue was closed. Skin was closed. Sterile dressing was placed. He was then extubated brought to recovery with no complications. Complications: none Post-operative Condition: stable Disposition: PACU Plan for aftercare: Inpatient. Ambulate as tolerated. Will need to stay in the hospital for recheck in 2 days. Continue IV antibiotics.
--- NOTE | 2019-07-17 15:47 | PC.NURSE ---
Day Shift- Report rec'd from DO Beck in PACU at 1500. pt arrived to unit at 1506 via bed, call light within reach. Alert, states stinging to right knee area, ice pack placed to right lateral knee. Romel wrap CDI. SCD placed to left lower extremity. bed alarm on, VSS. Upon review of current med list, no IV prn medication ordered. At 1540, Evening RN aware of pt's high pain, facial grimacing. When asked pt if nauseated, pt declined, just pain right now. Evening Rn to attempt po [place] and applesauce.
[2019-07-17] MEDS: LACTATED RINGERS 1,000 ML 125 ML IV (15:53)
[2019-07-17] MEDS: DOCUSATE 100 MG CAPSULE PO (20:50)
[2019-07-17] MEDS: MAGNESIUM HYDROXIDE 30 ML UDC PO (20:50)
[2019-07-18] MEDS: LACTATED RINGERS 1,000 ML 125 ML IV (00:35)
[2019-07-18] MEDS: HYDROCODONE/ACET 5/325 TABLET 2 TAB PO ×3 (04:08→17:29)
[2019-07-18 04:10] VITALS: BP 148/74; PULSE 70; RESP 14; TEMP 37.4; O2SAT 99
[2019-07-18 07:35] VITALS: BP 144/78; PULSE 65; RESP 16; TEMP 36.2; O2SAT 100
--- NOTE | 2019-07-18 07:39 | PM.PNPO.1 ---
Subjective Subjective Date Patient Seen: 07/18/19 Time Patient Seen: 07:40 Interval history: The knee is feeling better. He has not been up walking on it yet however Exam Vital Signs (past 8 hours): - 07/18/19 04:10 Temperature 99.4 F Pulse Rate 70 Respiratory Rate 14 Blood Pressure 148/74 H Pulse Oximetry 99 Oxygen Delivery Method Room Air Oxygen Flow Rate 0 Const Orientation: alert and oriented x3 Extrem Other: Right knee pain with initial range of motion but then comfortable 30-40 degrees. No swelling. Drain output 30/40. Decreased edema in leg Objective Labs Result Diagrams: 07/14/19 04:50 07/11/19 23:45 Assessment & Plan Post-op Postoperative Procedures: Procedures Operation Date: 07/12/19 01:25 Actual Procedures Side Surgeon p Incision and Drainage RIGHT INFECTED KNEE Right Steven Frias MD Operation Date: 07/14/19 10:15 Actual Procedures Side Surgeon p Incision and Drainage Knee Right Steven Frias MD Operation Date: 07/17/19 12:30 Actual Procedures Side Surgeon p Incision and Drainage Wound/Extremity Right Steven Frias MD he is looking better today. Continue in the hospital with IV antibiotics. Most likely pull the drain and sent home tomorrow. Probably looking at 2 weeks of IV antibiotics then orals as an outpatient as this is required 3 washouts and was such a severe infection.
[2019-07-18] MEDS: ENOXAPARIN 30 MG/0.3 ML SYRINGE SUBCUT (08:10)
[2019-07-18] MEDS: CEFTRIAXONE 2 GM/50 ML FROZ.PIGGY IV (08:11)
[2019-07-18] MEDS: DOCUSATE 100 MG CAPSULE PO ×2 (08:11→20:26)
--- NOTE | 2019-07-18 10:01 | PC.NURSE ---
Addendum entered by Kavita Burris R.N. 07/18/19 15:49: MS/PAIN - ambulated with phys therapy using fww into hallway, gait steady, reports earlier norco x 1 tab was providing adequate relief. Original Note: AM NOTE - pt is alert at bedside shift report, tiffanie hearing aids in, r knee discomfort 4 on scale 0/10 and managed with earlier norco tabs, discussed medications, dosage, timing, after breakfast given 10mg norco for phys therapy this am, + bt, discussed constipation and narcotics, did have bm this am, RLE edema, firm, l scd on, hr reg w/murmur, bs clear, enc freq IS and able to reach goal, dsg r knee cdi w/compressed hemovac, serosang in tubing.
[2019-07-18 11:35] VITALS: BP 129/75; PULSE 79; RESP 16; TEMP 36.6; O2SAT 100
--- NOTE | 2019-07-18 11:46 | CM.DPC ---
DCP/continued: Reviewed chart. Received notification from provider note that patient will need IV abx at time of d/c. Patient currently with midline placed over the weekend. It is anticipated that patient will need 2 weeks of IV antibiotics. Met with patient to discuss d/c plan. Patient reports that he would prefer to do the IV abx at his home rather than at SNF or outpatient. With patient's permission placed call to [facility] # [phone] faxed clinical with medication sheet to [phone]. They currently are checking into whether or not patient will have a copay. Updated RN on above. Anticipate that patient will d/c home with IV abx through [facility]. P: Pending estimate from [facility]. SRIRAM Snow
[2019-07-18] MEDS: HYDROCODONE/ACET 5/325 TABLET 1 TAB PO (12:36)
--- NOTE | 2019-07-18 14:07 | PT.IPTN ---
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) Surgery Performed Operation Date: 07/12/19 01:25 Actual Procedures p Incision and Drainage RIGHT INFECTED KNEE(Right) - Steven Frias MD Operation Date: 07/14/19 10:15 Actual Procedures p Incision and Drainage Knee(Right) - Steven Frias MD Operation Date: 07/17/19 12:30 Actual Procedures p Incision and Drainage Wound/Extremity(Right) - Steven Frias MD Physical Therapy Treatment Note M2 PT-IP Current Condition Start: 07/12/19 12:50 Freq: NEEDED Status: Active Protocol: Document 07/12/19 11:04 AB (Rec: 07/12/19 13:28 AB [id number]) Physical Therapy Current Condition Current Condition Evaluation Date 07/12/19 Treatment Diagnosis septic R knee s/p I&D; difficulty in walking Onset Date 07/12/19 M3 PT-IP Subjective Start: 07/12/19 12:50 Freq: NEEDED Status: Active Protocol: Document 07/18/19 13:52 AW (Rec: 07/18/19 14:07 AW [id number]) Subjective Physical Therapy Visit Type Type Treatment Note Visit Start Time 12:55 Visit Stop Time 13:15 Total Visit Minutes 20 Number of CHIEF CONSOLE OPERATOR Visits 0 Physical Therapy Visit Comments Patient Comments Pt willing to participate with PT Therapy Pain Assessment Pain When Pain Assessed During Mobility Pain Present Pain Present Pain Reported Location Right Knee Intensity 6 Scale Used 4/10 at rest; 6/10 with mobility Pain Management Techniques Re-positioning,Timing of Activity with Medications M4 PT-IP Mobility and Gait Start: 07/12/19 12:50 Freq: NEEDED Status: Active Protocol: Document 07/18/19 13:52 AW (Rec: 07/18/19 14:07 AW [id number]) PT-Transfer Assessment Sit to and From Stand Sit to and from Stand Standby Assistance Equipment Transfer Assistive Device Gait Belt,Front Wheeled Walker Orthotic/Prosthetic Devices or Brace: No Transfers Transfer Destination Chair Transfer Technique ambulated using FWW Transfer Ability Level of Assist Standby Assistance,1 Person Assistance,Use of Upper Extremities Comments Mobility Comments Pt completed sit to stand using FWW SBA. After gait training, he transferred back to the chair SBA without need for cues. Gait Assessment Gait Gait Assistance Required: Standby Assistance Distance (Feet) 200 Able to Maintain Weight Bearing Status Yes During Gait Assistive Devices Assistive Device Gait Belt,Front Wheeled Walker Orthotic/Prosthetic Devices or Brace: No Gait Deviations General Gait Pattern Antalgic,Decreased Stride Length,Decreased Feet Clearance,Step-to Gait Factors Limiting Gait Function Factors Limiting Gait Function Decreased Activity Tolerance, Decreased Strength,Limited Range of Motion,Pain,Poor Balance Comments Gait Comments Pt ambulated ~200 feet in the hallways using FWW SBA. He required brief standing rest breaks approximately every 15- 20 feet. Pt was able to shorten steps in order to equalize his step lengths in response to cues, promoting improved weightbearing RLE. Stair Climbing Assessment Evaluation Level of Assist On Stairs Standby Assistance Devices Stair Climbing Assistive Devices Front Wheel Walker Technique/Endurance Stair Climbing Direction Ascend and Descend Stair Climbing Technique Step to Step Number of Steps Climbed 1 Stair Climbing Set # Repetitions (reps) 2 Comments Stair Climbing Comments Pt required SBA for platform step x 2. He was able to verbalize strategy prior to attempting and did not need any further reminders for correct sequencing. M5 PT-IP Objective Assessments Start: 07/12/19 12:50 Freq: NEEDED Status: Active Protocol: Document 07/12/19 11:04 AB (Rec: 07/12/19 13:28 AB [id number]) Orientation Orientation/Cognition Level of Alertness Alert Orientation Name,Place,Situation Gross Range of Motion Lower Extremity ROM Assessment Right Impaired Impairments pain inhibiting motion: PROM: 30 deg flexion; lacking ~ 30 deg in extension Strength Lower Extremity Strength Assessment Right Impaired Hip 3+/5 Knee 3+/5 Coordination Assessment Gross Coordination Gross Coordination WNL Sensation Assessment Sensation Gross Sensation WNL Muscle Tone Muscle Tone WNL Yes M6 PT-IP Treatment Start: 07/12/19 12:50 Freq: NEEDED Status: Active Protocol: Document 07/18/19 13:52 AW (Rec: 07/18/19 14:07 AW [id number]) Physical Therapy Treatment Exercises Exercises Passive Knee Extension Hang, Seated Knee Flexion/Extension Education Education Provided Safety Other Treatments Other Treatment Performed Educated pt on positioning of the RLE, allowing the knee to hang to gravity occasionally in order to maintain extension ROM. M7 PT-IP Assessment and Plan Start: 07/12/19 12:50 Freq: NEEDED Status: Active Protocol: Document 07/18/19 13:52 AW (Rec: 07/18/19 14:07 AW [id number]) PT Summary Assessment and Plan Summary Impairments Pain,ROM,Strength,Balance,Bed Mobility,Transfers,Gait, Activity Tolerance Progress Towards Goals Progressing Toward Goals Assessment Summary Pt requiring SBA with transfers, ambulation, and platform stair with use of FWW . He tolerated ther ex without sharp increase in pain. ROM remains limited. Goals Bed Mobility Goal Independent Transfer Goal Independent,Front Wheeled Walker Gait Goal Independent,Front Wheel Walker Gait Distance 150 Other Goals up/down 1 step using FWW SBA Days to Meet Goals 3 Frequency of Treatment Frequency Of Treatment Twice a Day Treatment Plan Physical Therapy Treatment Plan Bed Mobility Training,Transfer Training,Gait Training, Therapeutic Exercise,Balance Retraining,Post Op Education, Discharge Planning,Hot or Cold Pack,Neuromuscular Re-ed, Coordination Retraining,Manual Therapy Other Recommendations and Next Treatment ambulation, stair training Focus Recommendations To Nursing Amount of Assist Needed Standby Assistance Discharge Recommendations PT Discharge Recommendations Home with Assistance,Home Health Equipment Needed for Home Before FWW Discharge Transportation Needs at Discharge Private Vehicle
[2019-07-18 15:25] VITALS: BP 147/80; PULSE 69; RESP 19; TEMP 36.3; O2SAT 100
--- NOTE | 2019-07-18 19:59 | PC.NURSE ---
Silke note: Patient resting quietly in bed, this RN assessed pain level, states a 1/10 and its tolerable. No further medication required. Call light within reach
[2019-07-18] MEDS: MAGNESIUM HYDROXIDE 30 ML UDC PO (20:27)
[2019-07-18 21:14] VITALS: BP 141/77; PULSE 85; RESP 18; O2SAT 96
[2019-07-18 23:40] VITALS: BP 155/53; PULSE 76; RESP 18; TEMP 36.8; O2SAT 98
[2019-07-19] MEDS: HYDROCODONE/ACET 5/325 TABLET 2 TAB PO (03:08)
[2019-07-19 03:22] VITALS: BP 155/86; PULSE 93; RESP 18; TEMP 36.7; O2SAT 99
[2019-07-19 05:53] LABS: C-Reactive Protein Quant 7.6 mg/dL (<1.0)
--- NOTE | 2019-07-19 06:20 | PC.NURSE ---
Contents of drain were liquid with mucoid type sludge.
--- NOTE | 2019-07-19 07:21 | PM.PNPO.1 ---
Subjective Subjective Date Patient Seen: 07/19/19 Time Patient Seen: 07:21 Interval history: His knee is feeling better Exam Vital Signs (past 8 hours): - 07/18/19 23:40 07/19/19 03:22 Temperature 98.2 F 98.0 F Pulse Rate 76 93 H Respiratory Rate 18 18 Blood Pressure 155/53 H 155/86 H Pulse Oximetry 98 99 Oxygen Delivery Method Room Air Oxygen Flow Rate 0 Const Orientation: alert and oriented x3 Extrem Other: Dressing CDI. Drain output , clear yellow fluid Objective Labs Result Diagrams: 07/14/19 04:50 07/11/19 23:45 Labs: Laboratory Results - last 24 hr 07/19/19 05:23 C-Reactive Protein 7.6 H Assessment & Plan Post-op Postoperative Procedures: Procedures Operation Date: 07/12/19 01:25 Actual Procedures Side Surgeon p Incision and Drainage RIGHT INFECTED KNEE Right Steven Frias MD Operation Date: 07/14/19 10:15 Actual Procedures Side Surgeon p Incision and Drainage Knee Right Steven Frias MD Operation Date: 07/17/19 12:30 Actual Procedures Side Surgeon p Incision and Drainage Wound/Extremity Right Steven Frias MD his drain output is tremendously improved. He continues to improve on his C reactive protein. I pulled his drain. His range of motion was much more comfortable with 60? after the drain was removed. Plan to discharge home today with 2 weeks of IV antibiotics.
--- NOTE | 2019-07-19 07:23 | P.DS_ITS ---
History of Present Illness History of Present Illness Date Patient Seen: 07/19/19 Time Patient Seen: 07:23 Chief complaint: states needs rt knee drained Narrative: 78-year-old male with a septic right knee. He reports twisting his knee over a week ago and having increasing pain over the week. His leg has been swollen and they sent him for an ultrasound to make sure there was no DVT. He got the results back several days later that there was no blood clot but there was fluid on the knee. He tried resting and icing but the pain began escalating in and on 07/09/2019 he was seen at the [facility] Emergency Room where they aspirated his knee. He reports they remove 4 vials of fluid and the swelling greatly went down, but it has returned today. His joint fluid cultures came back growing Staph aureus and the emergency room called him up to day and recommended he come to our emergency room as they did not have any orthopedic coverage at their hospital. At this point, he is having severe pain with any attempt at range of motion or weight-bearing. He denies fever or chills. Positive swelling through the entire leg. Redness in the leg as well. His knee feels like it is under high tension and needs to burst. Discharge Providers Provider Date of admission: 07/12/19 01:03 Discharge Date: 07/19/19 Primary care physician: Ignacio Thornton MD Consults: 07/17/19 15:13 Consult to Discharge Planning Routine Comment: Consult to Physical Therapy Evaluate & Treat Comment: Physician Instructions: Evaluate and Treat Consult to Respiratory Therapy Evaluate & Treat Comment: Physician Instructions: Evaluate and treat Discharge provider: Steven Frias MD Summary Hospital Course Discharge Diagnosis: Septic right knee Hospital Course: He was admitted to the hospital and brought to the operating ro om early on the morning of 07/12/2019 for an irrigation debridement of his right knee. He had a massive amount of grossly purulent fluid removed from the knee as soon it was opened up. He was admitted for IV antibiotics. Repeat cultures again showed pansensitive Staph aureus. He began having increasing pain and increasing thick drainage from his drain and was brought back to the operating room on 07/14/19. There was still some thick yellow fluid on this repeat washout. He was still having pain and the drain output began getting thicker and more productive again and he was brought back to the operating room for a 3rd time on 07/17/19. At this point the washout looked fairly clear with no signs of purulence. After the 3rd washout, his drain output was greatly decreased and was only clear yellow with no more thick fluid. His C reactive protein had come down from 30 to 7. He was feeling much better. Decision was made he that he was stable for discharge home on 2 weeks of IV antibiotics. Status at Discharge Cognitive/behavioral status at discharge: oriented Functional status at discharge: uses cane/walker Overall status at discharge: patient is progressing back to baseline Exam Vital Signs (past 8 hours): - 07/18/19 23:40 07/19/19 03:22 Temperature 98.2 F 98.0 F Pulse Rate 76 93 H Respiratory Rate 18 18 Blood Pressure 155/53 H 155/86 H Pulse Oximetry 98 99 Oxygen Delivery Method Room Air Oxygen Flow Rate 0 Const Orientation: alert and oriented x3 Extrem Other: Right knee comfortable 60 degree range of motion. Dressing CDI. Objective Labs Result Diagrams: 07/14/19 04:50 07/11/19 23:45 Labs: Laboratory Results - last 24 hr 07/19/19 05:23 C-Reactive Protein 7.6 H Discharge Plan Discharge Plan Patient Disposition: Home Discharge comment: Follow-up 1 week on Thursday07/27/2019. Keep dressing intact Discharge orders & Medications Prescriptions: New ceftriaxone in dextrose,iso-os 2 gram/50 mL Piggyback 2 gram IV Q24H 14 Days Qty: 700 RF: 0 hydrocodone-acetaminophen 5-325 mg Tablet 1 tab PO Q4HR PRN (Reason: Pain, Mild (1-3)) Qty: 10 RF: 0 Follow up/Referrals: Ignacio Thornton MD [Primary Care Provider] - Discharge Health Status Multidrug resistant organism: No MDRO Diet/Activity/Treatments Diet: Diet as Tolerated Activity: Weight bear as tolerated Skin/Wound/Dressing Care Report to your healthcare provider any signs of infection, such as:: chills, fever, night sweats, increased pain, unusual drainage and unusual redness Visit Report/Discharge Packet Instructions: DI for Incision and Drainage of a Joint Discharge Data Primary Care Provider: Ignacio Thornton
[2019-07-19 08:00] VITALS: BP 129/76; PULSE 70; RESP 16; TEMP 36.4; O2SAT 98
[2019-07-19] MEDS: ENOXAPARIN 30 MG/0.3 ML SYRINGE SUBCUT (08:23)
[2019-07-19] MEDS: DOCUSATE 100 MG CAPSULE PO (08:23)
[2019-07-19] MEDS: CEFTRIAXONE 2 GM/50 ML FROZ.PIGGY IV (08:24)
[2019-07-19] MEDS: HYDROCODONE/ACET 5/325 TABLET 1 TAB PO (08:34)
--- NOTE | 2019-07-19 10:50 | PT-IP ANOTE ---
Pt refused tx stating he wants to conserve his energy for his journey home. Pt is laying in bed, dressed and ready for ride to d/c home.
--- NOTE | 2019-07-19 10:59 | CM.DANOTE ---
DCP/continued: Reviewed chart. Received notification from provider that patient okay to d/c home today with IV abx. Spoke with Jean at [facility]. He reports that they can accept referral. Patient may have small deductible and he will discuss this with patient. D/C summary with included medication for home iv abx included. Met with patient explained role. Patient aware and agreeable to d/c home today with [facility]. Patient aware of copay and has spoken to [facility] over the phone. Brochure for [facility] left with patient. Updated RN. Next IV abx does due tomorrow. No additional needs identified. Patient has friends/family whom can provide transport. P: Home today with [facility]. SRIRAM Snow
--- NOTE | 2019-07-19 12:46 | PC.NURSE ---
DISCHARGE: LATE ENTRY: SURGEON ROMY'Yvon PATIENT DRAIN AT APPROX 0800 THIS AM. DRSG CDI. PRIOR TO DISCHARGE, PICC LINE DRSG CHANGE WAS COMPLETED WITH STERILE DRSG CHANGE PROCEDURE PER PROTOCOL. PATIENT TOLERATED WELL. SUTURES IN PLACE, CAP CHANGED. [facility] TO CALL PATIENT AND TO SEE PATIENT TOMORROW MORNING WITH SUPPLIES TO TEACH ABX ADMINISTRATION. PATIENT'S FAMILY ARRIVED TO PICK HIM UP. 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 CM NOTIFIED. PATIENT HAS NOT MENTIONED THIS AND HAS BEEN SURE THAT HE WANTS TO GO HOME. FAMILY COMMENTED ON REHAB AND PATIENT STATES HE DOES NOT WANT THAT. PATIENT INSTRUCTED TO LEAVE DRSG INTACT, NO SHOWER, MAY SPONGE BATH UNTIL F/U APPT. FAMILY STATES THEY WILL CALL TODAY TO SCHEDULE F/U FOR THURSDAY PER [facility] INSTRUCTIONS. SCRIPTS PROVIDED TO PATIENT. PATIENT ALSO INSTRUCTED NOT TO DRIVE UNTIL OFF NARCOTICS AND CLEARED BY SURGEON. PATIENT CONFIRMS UNDERSTANDING. PATIENT LEFT W/ BRACE IMMOBILIZER IN PLACE AND ALL BELONGINGS AND PAPERWRK BY WC WITH TYPE CUTTER ESCORT AND 2 FEMALE FAMILY MEMBERS.
== END 2019-07-19 12:30 | disposition home or self-care (01) | DRG 487 ==
LOC: ED 22:36 → AC 07-12 01:14
PROVIDERS: Admitting Provider Orthopaedic Surgery; Emergency Provider Emergency Medicine; PCP Internal Medicine; Visit Provider Orthopaedic Surgery
PROC: 0S9C00Z Drainage of Right Knee Joint with Drainage Device, Open Approach (ICD-10-PCS; principal; 2019-07-12 01:25)
DX: M00.061 Staphylococcal arthritis, right knee (principal); A49.01 Methicillin susceptible Staphylococcus aureus infection, unspecified site; I25.10 Atherosclerotic heart disease of native coronary artery without angina pectoris
CPT/HCPCS: 36415; 73560; 80053; 85025; 85027; 85610; 85651; 86140; 87040; 87070; 87075; 87077; 87147; 87186; 87205; 97116; 97162; 97530; 99284; J0690; J0696; J1170; J1642; J1650; J2405; J2704; J3010

== ENCOUNTER → 2019-08-17 11:17 | Outpatient (CLI) | payer MEDICARE, SELFPAY ==
[2019-07-12 01:28] VITALS: BMI 23.3
--- NOTE | 2019-08-17 | DI.US.S_ITS ---
PROCEDURE: US PERIPH VENOUS LOW EXTREM RT INDICATIONS: RIGHT LOWER EXTREMITY EDEMA TECHNIQUE: Real-time imaging, as well as color and pulse Doppler interrogation, were performed of the lower extremity deep veins from the inguinal ligament to the popliteal fossa. COMPARISON: None. FINDINGS: The common femoral, femoral and popliteal veins are normally compressible, and free of intraluminal thrombus. Color and pulse Doppler demonstrate normal phasic intraluminal flow. There is normal augmentation response to distal compression maneuver. IMPRESSION: No evidence of deep venous thrombosis. Dictated by: Alfredo Montejo M.D. on 08/17/2019 at 14:32 Approved by: Alfredo Montejo M.D. on 08/17/2019 at 14:32
== END ==
PROVIDERS: PCP Internal Medicine; Referring Provider Internal Medicine; Visit Provider Orthopaedic Surgery
DX: R60.0 Localized edema (principal)
CPT/HCPCS: 93971